=== PATIENT | male | born 1955 | race African-American/Black ===

== ENCOUNTER 2017-08-04 07:40 | Emergency (ER) | payer MEDICARE, MEDICAID ==
--- NOTE | 2017-08-04 08:33 | RAD ---
FRONTAL RADIOGRAPH CHEST: Date: 08-04-17 Comparison: None. History: Vomiting, nausea. FINDINGS: No pneumothorax, pleural fluid, focal consolidation or alveolar edema. Heart and mediastinal contour s demonstrate mild prominence of the cardiac silhouette which could be secondary to enlargement and/ or magnification. IMPRESSION: No acute findings. POS: [facility]
[2017-08-04] MEDS ORDERED: Ondansetron HCl/PF 4 MG/2 ML Vial ONE (08:46)
[2017-08-04 09:12] LABS: #Lymphocytes 1.4 thou/uL (1.20-3.40); #Monocytes 0.2 thou/uL (0.11-0.59); #Neutrophils 4.2 thou/uL (1.40-6.50); %Basophils 0.6 % (0.0-1.0); %Eosinophils 0.3 % (0.0-10.0); %Lymphocytes 23.2 % (21.0-51.0); %Monocytes 4.1 % (0.0-10.0); Mean Platelet Volume 8.8 fL (7.4-10.4); Red Blood Cell (RBC) Count 5.23 mill/uL (4.70-6.10); White Blood Cell (WBC) Count 5.8 thou/uL (4.8-10.8)
[2017-08-04] MEDS ORDERED: Promethazine HCl 25 MG/ML VIAL ONE (09:28)
[2017-08-04] MEDS ORDERED: Morphine 10 MG/ML VIAL ONE (09:29)
[2017-08-04 09:40] LABS: ALT (SGPT) 15 U/L (8-55); AST (SGOT) 23 U/L (5-34); Alkaline Phosphatase 89 U/L (40-150); Anion Gap 19 mmol/L (10-20); BUN (Urea Nitrogen) 11 mg/dL (8.4-25.7); Bilirubin, Total 0.7 mg/dL (0.2-1.2); CK (CPK) 360 U/L (30-200); Calc. Creatinine Clearance 0 mL/min (70-130); Calcium 10.6 mg/dL (7.8-10.44); Carbon Dioxide 25 mmol/L (23-31); Chloride 97 mmol/L (98-107); Estimated GFR-MDRD 69; Globulin 4.2 g/dL (2.4-3.5); Lipase 38 U/L (8-78)
[2017-08-04 09:44] LABS: Troponin I 0.015 ng/mL (< 0.028)
--- NOTE | 2017-08-04 10:11 | RAD ---
KUB: History: Abdominal pain, nausea, vomiting. FINDINGS: The bowel gas pattern appears nonobstructive. Surgical clips are seen in the right upper quadrant. T here are arthritic changes of the spine. IMPRESSION: No acute findings. POS: [facility]
== END 2017-08-04 12:43 | disposition home or self-care (01) ==
LOC: ERS 07:40
DX: R11.2 Nausea with vomiting, unspecified (principal); I11.0 Hypertensive heart disease with heart failure; I50.9 Heart failure, unspecified; E11.9 Type 2 diabetes mellitus without complications; E78.5 Hyperlipidemia, unspecified; Z79.891 Long term (current) use of opiate analgesic; Z79.899 Other long term (current) drug therapy
CPT/HCPCS: 71010; 74000; 80053; 82553; 83690; 83880; 84484; 85025; 93005; 96361; 96374; 96375; J2270; J2405; J2550

== ENCOUNTER 2017-09-09 11:37 | Observation (INO) | payer MEDICARE, MEDICAID ==
[2017-09-09] MEDS ORDERED: Ondansetron ODT 4 MG TAB ONE (12:37)
[2017-09-09 12:39] LABS: #Lymphocytes 1.3 thou/uL (1.20-3.40); #Monocytes 0.5 thou/uL (0.11-0.59); #Neutrophils 4.3 thou/uL (1.40-6.50); %Basophils 0.5 % (0.0-1.0); %Eosinophils 0.2 % (0.0-10.0); %Lymphocytes 21.7 % (21.0-51.0); %Monocytes 7.4 % (0.0-10.0); Hematocrit 45.5 % (42.0-52.0); Mean Platelet Volume 8.7 fL (7.4-10.4); Red Blood Cell (RBC) Count 4.91 mill/uL (4.70-6.10); White Blood Cell (WBC) Count 6.2 thou/uL (4.8-10.8)
[2017-09-09 13:03] LABS: ALT (SGPT) 17 U/L (8-55); AST (SGOT) 17 U/L (5-34); Alkaline Phosphatase 65 U/L (40-150); Anion Gap 15 mmol/L (10-20); BUN (Urea Nitrogen) 33 mg/dL (8.4-25.7); Bilirubin, Total 0.9 mg/dL (0.2-1.2); CK (CPK) 188 U/L (30-200); Calc. Creatinine Clearance 0 mL/min (70-130); Calcium 9.8 mg/dL (7.8-10.44); Carbon Dioxide 25 mmol/L (23-31); Chloride 102 mmol/L (98-107); Estimated GFR-MDRD 68; Globulin 3.3 g/dL (2.4-3.5); Lipase 34 U/L (8-78); Protein, Total 7.7 g/dL (5.8-8.1)
[2017-09-09 13:06] LABS: Troponin I 0.061 ng/mL (< 0.028)
--- NOTE | 2017-09-09 13:18 | RAD ---
CHEST ONE VIEW: History: Chest pain. Comparison: 08-04-17 FINDINGS: Lungs are clear. No pneumothorax or effusion. Cardiac silhouette and mediastinal contours are within normal limits. IMPRESSION: No acute intrathoracic abnormality. POS: [facility]
[2017-09-09] MEDS ORDERED: Mag-Al 1200 mg/1200 mg/30 ML UDCUP ONE (13:28)
[2017-09-09] MEDS ORDERED: Lidocaine Viscous Sol 2% 15 ml UD Cup ONE (13:30)
[2017-09-09] MEDS ORDERED: Nitroglycerin 0.4 MG TAB (25 Tab Bottle) ONE (14:35)
[2017-09-09 15:30] LABS: Troponin I 0.066 ng/mL (< 0.028)
[2017-09-09 18:15] LABS: Amphetamine Not Detected (NotDetected); Methadone Not Detected (NotDetected); Methamphetamine Not Detected (NotDetected)
[2017-09-09] MEDS ORDERED: cloNIDine 0.1 MG TAB PO PRN (18:32)
[2017-09-09] MEDS ORDERED: Labetalol HCl 100 MG/20 ML VIAL SLOW IVP PRN (18:32)
[2017-09-09] MEDS ORDERED: Acetaminophen 325 MG TAB PO PRN (18:32)
[2017-09-09] MEDS ORDERED: Ondansetron HCl/PF 4 MG/2 ML Vial IVP PRN (18:32)
[2017-09-09] MEDS ORDERED: hydrALAZINE 20 MG/ML VIAL SLOW IVP PRN (18:32)
[2017-09-09] MEDS ORDERED: Ondansetron ODT 4 MG TAB PO PRN (18:32)
[2017-09-09 18:37] VITALS: BMI 32.4
[2017-09-09] MEDS ORDERED: Morphine 4 MG/ML VIAL SLOW IVP PRN ×2 (18:45→23:01)
[2017-09-09] MEDS: Nitroglycerin 2% Ointment 1 INCH/1 GM Packet TOP SCH (19:48)
[2017-09-09] MEDS ORDERED: Nitroglycerin 0.4 MG TAB (25 Tab Bottle) PO PRN (22:55)
[2017-09-09] MEDS ORDERED: Cyclobenzaprine 10 MG TAB PO PRN (22:59)
[2017-09-09] MEDS ORDERED: traMADol HCl 50 MG TAB PO PRN (22:59)
[2017-09-09] MEDS ORDERED: Pantoprazole 40 MG VIAL IVP SCH (23:00)
[2017-09-09] MEDS ORDERED: Promethazine HCl 25 MG in Sodium Chloride 0.9% 50 ML IVPB PRN (23:00)
[2017-09-09] MEDS ORDERED: Carvedilol 6.25 MG TAB PO SCH (23:00)
[2017-09-09] MEDS ORDERED: Sodium Chloride 0.9% 1,000 ML IV SCH (23:00)
[2017-09-10 05:28] LABS: #Lymphocytes 1.6 thou/uL (1.20-3.40); #Monocytes 0.6 thou/uL (0.11-0.59); #Neutrophils 3.7 thou/uL (1.40-6.50); %Basophils 0.1 % (0.0-1.0); %Eosinophils 0.2 % (0.0-10.0); %Lymphocytes 26.4 % (21.0-51.0); %Monocytes 10.3 % (0.0-10.0); Hematocrit 41.1 % (42.0-52.0); Mean Platelet Volume 8.7 fL (7.4-10.4); Red Blood Cell (RBC) Count 4.38 mill/uL (4.70-6.10); White Blood Cell (WBC) Count 5.9 thou/uL (4.8-10.8)
[2017-09-10] MEDS: Nitroglycerin 2% Ointment 1 INCH/1 GM Packet TOP SCH (05:46)
[2017-09-10 05:53] LABS: Anion Gap 12 mmol/L (10-20); BUN (Urea Nitrogen) 35 mg/dL (8.4-25.7); Calc. Creatinine Clearance 78 mL/min (70-130); Carbon Dioxide 27 mmol/L (23-31); Chloride 103 mmol/L (98-107); Estimated GFR-MDRD 73; Magnesium 2.3 mg/dL (1.6-2.6); Phosphorus 3.9 mg/dL (2.3-4.7)
[2017-09-10] MEDS ORDERED: Carvedilol 25 MG TAB PO SCH (08:00)
--- NOTE | 2017-09-10 08:48 | HP ---
PRIMARY CARE PHYSICIAN: Dr. Ansley Vaughan. CHIEF COMPLAINT: Chest discomfort with nausea and vomiting of 4 days' duration. The patient was seen and examined on 09/09/2017. HISTORY OF PRESENT ILLNESS: Patient is a 62-year-old male with chronic systolic and diastolic heart failure, ejection fraction 30%-35%; hypertension; hyperlipidemia; diabetes mellitus, type 2; and belgica nary artery disease, who presented to the emergency room with above complaints. [facility] with nausea, vomiting, and was discharged home. Over the last 2 days, the patient has chest discomfort that is more or less dull with intermittent pr essure-like, left-sided, moderate intensity chest pain without any radiation. He also had nausea and vomiting along with epigastric discomfort. The nausea and vomiting has been ongoing for the last 4 days. He denies any palpitations or lightheadedness; however, had intermittent diaphoresis. He yoshi es recent immobilization, travel, fever, or chills. He is compliant with his PPIs and follows to GI clinic regularly. He underwent EGD 3 years ago that showed peptic ulcer per patient report. In the emergency room, his initial vital signs showed temperature 98.4, respirations 26, pulse rate o f 60, blood pressure 179/74 with O2 saturation 100% on room air. Patient is allergic to ASPIRIN. Hi s EKG showed sinus bradycardia with occasional PVCs with left anterior fascicular block with nonspeci fic ST-T wave changes. Chest x-ray was negative. Urine drug screen was positive for cannabinoid. H e received GI cocktail, Zofran with Protonix, and sublingual nitroglycerin in the ER. PAST MEDICAL HISTORY: 1. Chronic systolic and diastolic heart failure, ejection fraction 30%-35%, followed by Dr. Sloan. 2. Diabetes mellitus, type 2. 3. Hypertension. 4. Hyperlipidemia. 5. Coronary artery disease. 6. Gout. PAST SURGICAL HISTORY: 1. The patient had a cardiac catheterization as outpatient with Dr. Sloan in 2016, report unavailab le. 2. Cholecystectomy. ALLERGIES: Patient is allergic to ASPIRIN. CURRENT HOME MEDICATIONS: [facility], allopurinol 100 mg daily, Lipitor 40 mg daily, Coreg 12.5 mg b.i.d., Flexeril as needed, Dexilant 60 mg daily, lisinopril 40 mg daily, Flomax 0.4 mg daily, trama dol as needed. SOCIAL HISTORY: Patient currently lives at home. No tobacco, alcohol, or drug use reported. FAMILY HISTORY: Positive for colon and throat cancer. REVIEW OF SYSTEMS: The following complete review of systems was negative, unless otherwise mentioned in the HPI or below: Constitutional: Weight loss or gain, ability to conduct usual activities. Sk in: Rash, itching. Eyes: Double vision, pain. ENT/Mouth: Nose bleeding, neck stiffness, pain, te nderness. Cardiovascular: Palpitations, dyspnea on exertion, orthopnea. Respiratory: Shortness of breath, wheezing, cough, hemoptysis, fever, or night sweats. Gastrointestinal: Poor appetite, abdo cade pain, heartburn, nausea, vomiting, constipation, or diarrhea. Genitourinary: Urgency, frequen cy, dysuria, nocturia. Musculoskeletal: Pain, swelling. Neurologic/Psychiatric: Anxiety, depressi on. Allergy/Immunologic: Skin rash, bleeding tendency. PHYSICAL EXAMINATION: VITAL SIGNS: In the emergency room showed temperature 98.4, respirations 26, pulse of 60, blood pres sure 179/74 with O2 saturation 100% on room air. GENERAL: A 62-year-old male, feels somewhat better after the ER treatment. HEENT: Head atraumatic, normocephalic. Sclerae are anicteric. Moist mucous membranes. No oral les ion. NECK: Supple, no JVD appreciated. No carotid bruit. LUNGS: Clear to auscultation bilaterally. HEART: S1, S2 present. Regular rate and rhythm, 2/6 systolic murmur over the mitral area. No heave s or pulsation. ABDOMEN: Soft, mild epigastric tenderness, without any rebound, guarding, no costovertebral angle te nderness. EXTREMITIES: No edema or calf tenderness. NEUROLOGIC: Grossly nonfocal. Moves all four extremities. PSYCHIATRY: Alert, awake, oriented x3. SKIN: Warm and dry. LYMPH NODES: No palpable lymph nodes in the neck. PERIPHERAL VASCULAR: Radial pulses palpable bilaterally. MUSCULOSKELETAL: No joint swelling or tenderness. LABORATORY FINDINGS: CBC showed WBC 6.2 with hemoglobin 15.3, platelets 203 Chemistries showed sodiu m 138, potassium 3.8, chloride 102, bicarbonate 25, BUN 33, creatinine 1.29. Troponin was 0.061. BN P 440. Urine drug screen was positive for cannabinoid. Chest x-ray and EKG, by my review, as discus sed above. IMPRESSION: 1. Chest discomfort, rule out acute coronary syndrome. Patient has indeterminate troponins. 2. Nausea and vomiting with epigastric discomfort. Possibilities include gastritis versus hyperemes is due to Cannabis abuse. 3. Cannabis abuse. 4. Chronic kidney disease, stage 2. 5. Elevated troponins. 6. Chronic systolic and diastolic heart failure, appears to be compensated. 7. Hypertension. 8. Gout. 9. Diabetes mellitus, type 2, diet controlled. 10. Hyperlipidemia, on statins. 11. Coronary artery disease with last cardiac catheterization in 2016, report unavailable. 12. Aspirin allergy. 13. Obesity with a BMI 32.4. PLAN: The patient will be monitored on the telemetry unit. Cardiology will be consulted. He will p robably need a GI workup as outpatient. We will continue proton pump inhibitors at discharge. We wi ll start him on IV Protonix while he is here. Pain control, nitro patch for now due to chest discomf ort along with elevated blood pressure. Plan of care was discussed with the patient in detail. He stated understanding. Please note that patient was seen on 09/09/2017 at 23:00.
[2017-09-10] MEDS ORDERED: Pantoprazole 40 MG VIAL IVP SCH (09:00)
[2017-09-10] MEDS ORDERED: Atorvastatin Calcium 40 MG TAB PO SCH (09:00)
[2017-09-10] MEDS ORDERED: Tamsulosin HCl 0.4 MG CAP PO SCH (09:00)
[2017-09-10] MEDS ORDERED: Allopurinol 100 MG TAB PO SCH (09:00)
[2017-09-10] MEDS ORDERED: Lisinopril 20 MG TAB PO SCH (09:00)
--- NOTE | 2017-09-10 10:48 | CON ---
CARDIOLOGY CONSULTATION NOTE DATE OF CONSULTATION: 09/10/2017 REASON FOR CONSULTATION: Chest pain. HISTORY OF PRESENT ILLNESS: Mr. Ureña is a very pleasant 62-year-old - [place] gentleman who comes to the hospital for nausea and vomiting. He has been having a lot of nausea and vomiting for the last 4 days. He has been unable to eat much. He has been followed by Gastroenterology for this as this has been an ongoing issue and he was told he has severe peptic ulcer disease. He states that every now and then he gets 2 or 3 days worth of vomiting; this time it was 4 days, so he decided to come in for evaluation. He has a history of a cardiomyopathy back in 2011. He had an EF of 30% to 35%. Most recent echocardiogram was done a year and a half ago in 04/2016, and he had an EF of 45 % to 50%; around that same time, he had a heart catheterization that showed no significant coronary artery disease and his EF on LV gram was 50%. He has remained in all of his cardiac medications. He tells me he feels much better. He denies any more pain, tightness or pressure. It was mostly when he would hurle and only vomit. PAST MEDICAL HISTORY: 1. Nonischemic cardiomyopathy, latest EF at 50%. 2. Mild to moderate coronary artery disease. 3. Type 2 diabetes. 4. Hypertension. 5. Hyperlipidemia. 6. Gout. PAST SURGICAL HISTORY: 1. Cardiac catheterization. 2. Cholecystectomy. ALLERGIES: ASPIRIN does not really cause an allergy, but it is more a side effect from upset stomach. OUTPATIENT MEDICATIONS: Include; 1. Allopurinol 100 mg a day. 2. Lipitor 40 mg a day. 3. Coreg 12.5 mg b.i.d. 4. Flexeril p.r.n. 5. Dexilant 60 mg a day. 6. Lisinopril 40 mg a day. 7. Flomax. 8. Tramadol as needed. SOCIAL HISTORY: Lives at home. No alcohol, tobacco or drugs. FAMILY HISTORY: Noncontributory. REVIEW OF SYSTEMS: A 12-point review of systems was done and is all negative unless stated in the history of present illness. PHYSICAL EXAMINATION: VITAL SIGNS: Temperature 98.3, pulse 48-51, respiratory rate 16, satting 96% on room air and blood pressure 130/62. GENERAL: Awake, alert and oriented x3, in no distress. HEENT: Normocephalic and atraumatic. NECK: Supple. LUNGS: Clear. CARDIOVASCULAR: S1, S2. No S3, S4. No murmurs or rubs. ABDOMEN: Soft. Positive bowel sounds. EXTREMITIES: No edema. SKIN: Warm and dry. LABORATORY DATA: Laboratory work was reviewed. White count of 5.9, hemoglobin 13.7, hematocrit 41 and platelet count of 176. Chemistries are unremarkable. Troponins 0.06, 0.06 and 0.06. BNP was 440, creatinine of 1.2 and GFR 73. UDS is negative except for cannabinoids. IMAGING DATA: EKG is reviewed, no ischemic changes. Telemetry was reviewed. ASSESSMENT AND PLAN: 1. Chest pain: Likely related to gastrointestinal source. Heart catheterization a little bit over a year ago showed just a 50% lesion in the groove circumflex that is not flow limiting. His ejection fraction was normal at 50% at that time. 2. Nonischemic cardiomyopathy: Normalized ejection fraction. 3. Palpitations: He gives a history of feeling episodes of palpitations recently. He has not had any arrhythmias on telemetry here; we will have him get a 30-day monitor, as he says these happen about once every 2-3 weeks. 4. From the cardiac perspective, he should be able to be discharged home and will follow up with me in the office in 1 month with an echocardiogram and event monitor. OLY
[2017-09-10 12:59] VITALS: BP 164/78; TEMP 97.5
--- NOTE | 2017-09-11 08:29 | DIS ---
DATE OF ADMISSION: 09/09/2017 DATE OF DISCHARGE: 09/10/2017 DISCHARGE DISPOSITION: Home. FOLLOWUP: Follow up with primary care physician, Ansley Vaughan PA-C, in 1 week. Follow up wit h Cardiology, Dr. Sloan as scheduled. Follow up with secretarial teacher as soon as possible. The patient was seen and examined on the day of discharge. Denies any new complaints. Chest discomf ort/epigastric discomfort has resolved. BRIEF HOSPITAL COURSE: The patient is a 62-year-old male with chronic systolic and diastolic heart f ailure, hypertension, diabetes mellitus type 2, and GERD, who presented to the emergency room with ch est discomfort along with nausea and vomiting of 4 days duration. Please refer to the history and ph ysical for further details. The patient was admitted to the telemetry unit as a 23-hour observation with chest pain, rule out celso cardial infarction. His troponins were in the indeterminate range with maximum troponin 0.066. BNP was 440. Urine drug screen was positive for cannabinoid. He was evaluated by Cardiology, Dr. Sloan . The patient had a cardiac catheterization last year that showed around 50% lesion in the circumfle x, which was not flow limiting. The ejection fraction was normal at that time around 50%. The patie nt's symptoms probably GI in origin. He was advised to follow up with gastroenterology clinic. He n ormally follows Dr. Ayo Dickerson. He will follow up with Cardiology after a month for a repeat echocar diogram as well as an event monitor due to intermittent fluttering. FINAL DIAGNOSES: 1. Chest discomfort, acute coronary syndrome ruled out. 2. Nausea, vomiting, epigastric discomfort, probably secondary to gastritis versus peptic ulcer dise ase. Hyperemesis due to cannabis is also a possibility. 3. Intermittent fluttering. Event monitor will be arranged. 4. Chronic kidney disease stage 2. 5. Slightly elevated troponins, probably secondary to demand ischemia/dehydration. 6. Chronic systolic and diastolic heart failure, compensated. Last ejection fraction was in 50% ran ge per Cardiology report. 7. Hypertension. 8. Gout. 9. Diabetes mellitus type 2. 10. Hyperlipidemia. 11. Coronary artery disease. 12. ASPIRIN allergy. 13. Obesity with a BMI of 32.4. Plan of care was discussed with the patient in detail. He stated understanding.
== END 2017-09-10 13:20 | disposition home or self-care (01) ==
LOC: ERS 11:37 → 2SW 16:31
PROVIDERS: ADMIT Internal Medicine; ATTEND Internal Medicine
DX: R07.89 Other chest pain (principal); I49.8 Other specified cardiac arrhythmias; I13.0 Hypertensive heart and chronic kidney disease with heart failure and stage 1 through stage 4 chronic kidney disease, or unspecified chronic kidney disease; E11.22 Type 2 diabetes mellitus with diabetic chronic kidney disease; N18.2 Chronic kidney disease, stage 2 (mild); I50.42 Chronic combined systolic (congestive) and diastolic (congestive) heart failure; M10.9 Gout, unspecified; R11.2 Nausea with vomiting, unspecified; E78.5 Hyperlipidemia, unspecified; I25.10 Atherosclerotic heart disease of native coronary artery without angina pectoris; F12.10 Cannabis abuse, uncomplicated; I25.2 Old myocardial infarction; E66.9 Obesity, unspecified; Z68.32 Body mass index [BMI] 32.0-32.9, adult; Z88.8 Allergy status to other drugs, medicaments and biological substances; Z98.61 Coronary angioplasty status; Z90.49 Acquired absence of other specified parts of digestive tract; Z79.899 Other long term (current) drug therapy; Z80.0 Family history of malignant neoplasm of digestive organs; Z80.8 Family history of malignant neoplasm of other organs or systems
CPT/HCPCS: 71010; 80048; 80053; 80306; 82550; 82553; 83690; 83735; 83880; 84100; 84484 ×2; 85025 ×2; 93005; 94760 ×3; 96361; 96374; 96375; 96376 ×2; 99285; G0378; 36415; A4216; C9113; J2270; Q0162

== ENCOUNTER 2017-10-29 07:47 | Observation (INO) | payer MEDICARE, MEDICAID ==
[2017-10-29] MEDS ORDERED: Ondansetron HCl/PF 4 MG/2 ML Vial ONE (08:30)
[2017-10-29] MEDS ORDERED: Pantoprazole 40 MG VIAL ONE (08:30)
[2017-10-29] MEDS ORDERED: Promethazine HCl 25 MG/ML VIAL ONE (08:52)
[2017-10-29] MEDS ORDERED: Carvedilol 6.25 MG TAB PO SCH (09:30)
[2017-10-29] MEDS ORDERED: hydrALAZINE 20 MG/ML VIAL SLOW IVP PRN (09:55)
[2017-10-29] MEDS ORDERED: Ondansetron ODT 4 MG TAB PO PRN (10:07)
[2017-10-29] MEDS ORDERED: Ondansetron HCl/PF 4 MG/2 ML Vial IVP PRN ×2 (10:07→10:14)
[2017-10-29] MEDS ORDERED: Sodium Chloride 0.9% 1,000 ML IV SCH (10:14)
[2017-10-29] MEDS ORDERED: HYDROcodone/Acetaminophen 7.5/325 mg Tablet PO PRN (10:14)
[2017-10-29 10:15] VITALS: BMI 31.1
--- NOTE | 2017-10-29 10:39 | HP ---
DATE OF ADMISSION: 10/29/2017 CHIEF COMPLAINT: Nausea and vomiting. HISTORY OF PRESENT ILLNESS: This is a 62-year-old -[place] male with a known history of pept ic ulcer disease diagnosed 3 years ago following an EGD. Patient is from [place]. He initially dev eloped acute onset of abdominal pain. This was 2 days ago which is where he woke up with the pain an d this has been constant since 2 days and today he had a similar pain last night and he came to the E for further evaluation. The patient was having severe vomiting associated with nausea and was unab le to keep anything down. His pain is noted in the left upper quadrant, was 7 on 10 in intensity and no evidence of any blood in the stool and no blood in the vomit. He denied eating any outside food or any evidence of food poisoning. He does drink alcohol. He says he takes beer occasionally, but n o history of smoking. The patient has no history of congestive heart failure, had a stress test 3 ye ars ago and was diagnosed with CHF and is on medication since then. He has a known history of hypert ension which is poorly controlled, most likely from the pain. PAST MEDICAL HISTORY: 1. Hypertension. 2. Hyperlipidemia. 3. History of congestive heart failure. 4. History of peptic ulcer disease. PAST SURGICAL HISTORY: Cholecystectomy. SOCIAL HISTORY: The patient is a nonsmoker. He does drink alcohol occasionally. No history of illi cit drug use. He lives with his family. FAMILY HISTORY: Patient has significant family history of coronary artery disease. His father at age of 60s and also has coronary artery disease in her mother and brothers. REVIEW OF SYSTEMS: All 12 systems are reviewed with the patient thoroughly and found to be negative at this time except the ones described in HPI. The following complete review of systems was negative, unless otherwise mentioned in the HPI or below : Constitutional: Weight loss or gain, sense of well-being, ability to conduct usual activities, ex ercise tolerance. Skin/Breast: Rash, itching, changes in hair growth or loss, nail changes, breast lumps, tenderness, swelling, nipple discharge. Eyes: Vision, double vision, tearing, blind spots, p ain. ENT/Mouth: Headaches (location, time of onset, duration, precipitating factors), vertigo, ligh theadedness, injury. Vision, double vision, tearing, blind spots, pain, nose bleeding, colds, obstruc tion, discharge, dental difficulties, gingival bleeding, dentures, neck stiffness, pain, tenderness, masses in thyroid or other areas. Cardiovascular: Precordial pain, substernal distress, palpitation s, syncope, dyspnea on exertion, orthopnea, nocturnal paroxysmal dyspnea, edema, cyanosis, hypertensi on, heart murmurs, varicosities, phlebitis, claudication. Respiratory: Pain, shortness of breath, w heezing, stridor, cough, hemoptysis, fever or night sweats. Gastrointestinal: Poor appetite, dyspha nan, indigestion, abdominal pain, heartburn, eructation, nausea, vomiting, hematemesis, jaundice, con stipation, or diarrhea, abnormal stools (matthew-colored, tarry, bloody, greasy, foul smelling), flatule nce, hemorrhoids, recent changes in bowel habits. Genitourinary: Urgency, frequency, dysuria, noctu shonda, hematuria, polyuria, oliguria, unusual (or change in) color of urine, stones, hesitancy, change in size of stream, dribbling, acute retention or incontinence, libido, potency. Musculoskeletal: Pa in, swelling, redness or heat of muscles or joints, limitation, of motion, muscular weakness, atrophy , cramps. Neurologic/Psychiatric: Convulsions, paralyses, tremor, incoordination, paresthesias, dif ficulties with memory of speech, sensory or motor disturbances, or muscular coordination (ataxia, alec mor), emotional problems, anxiety, depression, previous psychiatric care, unusual perceptions, halluc inations. Allergy/Immunologic: Skin rash, anemia, bleeding tendency, polydipsia, polyuria, intolera nce to heat or cold. HOME MEDICATIONS: 1. Allopurinol 100 mg p.o. daily. 2. Atorvastatin 40 mg p.o. daily. 3. Cyclobenzaprine 10 mg p.o. t.i.d. 4. Dexlansoprazole 60 mg p.o. daily. 5. Lisinopril 40 mg p.o. daily. 6. Tamsulosin 0.4 mg p.o. daily. 7. Tramadol 50 mg p.o. q.i.d. 8. Carvedilol 12.5 mg p.o. daily. ALLERGIES: ASPIRIN. PHYSICAL EXAMINATION: VITAL SIGNS: Blood pressures are 185/85, respiratory rate is 18, saturation is 98%. GENERAL: The patient is moderately built and moderately nourished. He appears to be in mild distres s with abdominal pain, otherwise is alert and oriented. HEENT: Atraumatic, normocephalic, PERRLA. Extraocular movements were intact. Oral mucosa is pink a nd moist. CARDIOVASCULAR: S1, S2 normal. No murmurs, rubs or gallops. LUNGS: Bilateral air entry was equal. No wheezing, no crackles. ABDOMEN: Tender in the left upper quadrant and right upper quadrant. No guarding was noted. Bowel sounds were normal. MUSCULOSKELETAL: No calf tenderness. No pedal edema. EXTREMITIES: No joint redness, no joint swelling. SKIN: No cyanosis, no edema, no rash, no pallor. NEUROLOGIC: Cranial nerve examination II-XII intact. No focal deficits were noted. LABORATORY DATA: Hemoglobin is 14. BUN is 14, creatinine is 0.97. All rest of the labs are not hillary ilable at this time. ASSESSMENT: 1. Acute intractable nausea and vomiting. 2. History of peptic ulcer disease. 3. Uncontrolled hypertension. 4. History of congestive heart failure. 5. History of hyperlipidemia. 6. History of gout. 7. Sinus. PLAN: 1. Plan is to admit this patient and closely monitor this patient. Patient has a persisting abdomin al pain. No imaging is available at this time. We will do CT of the abdomen with oral contrast. 2. We will start the patient on Protonix IV 40 mg b.i.d. and will closely monitor. We will keep the patient n.p.o. until seen by GI, Dr. East has been consulted. 3. The patient has history of uncontrolled hypertension. We will discontinue the IV fluids at this time as the patient has poorly controlled blood pressures and has a history of congestive heart failu re. We will start the patient on lisinopril. He is on medication and will do hydralazine 10 mg q.6 h. for blood pressures more than 160. 4. The patient has history of congestive heart failure. We will avoid volume overload. The patient has received fluid boluses in the ER. I will just run the fluids to keep the vein open. 5. History of hyperlipidemia. We will continue the patient with home medication. 6. History of gout. No evidence of any gout exacerbation noted. We will hold allopurinol at this t vicki. 7. DVT prophylaxis. SCDs. I spent 70 minutes on this patient.
[2017-10-29 10:56] LABS: #Lymphocytes 1.2 thou/uL (1.20-3.40); #Monocytes 0.3 thou/uL (0.11-0.59); #Neutrophils 6.1 thou/uL (1.40-6.50); %Basophils 0.2 % (0.0-1.0); %Lymphocytes 15.6 % (21.0-51.0); %Monocytes 4.1 % (0.0-10.0); %Neutrophils 80.1 % (42.0-75.0); Mean Corpuscular HGB CONC 33.2 g/dL (32.0-36.0); Mean Corpuscular Hemoglobin 31.1 pg (27.0-31.0); Mean Corpuscular Volume 93.5 fl (80.0-94.0); Mean Platelet Volume 8.3 fL (7.4-10.4); Platelet Count 225 thou/uL (130-400); RBC Distribution Width 12.8 % (11.5-14.5); Red Blood Cell (RBC) Count 5.16 mill/uL (4.70-6.10); White Blood Cell (WBC) Count 7.6 thou/uL (4.8-10.8)
[2017-10-29 11:10] LABS: Albumin 4.5 g/dL (3.4-4.8)
[2017-10-29 11:12] LABS: Calcium 9.9 mg/dL (7.8-10.44); Chloride 100 mmol/L (98-107); Potassium 3.7 mmol/L (3.5-5.1); Sodium 138 mmol/L (136-145)
[2017-10-29 11:13] LABS: Globulin 3.6 g/dL (2.4-3.5); Glucose 137 mg/dL (80-115); Protein, Total 8.1 g/dL (5.8-8.1)
[2017-10-29 11:14] LABS: Carbon Dioxide 23 mmol/L (23-31)
[2017-10-29 11:15] LABS: Bilirubin, Total 0.8 mg/dL (0.2-1.2)
[2017-10-29 11:16] LABS: Alkaline Phosphatase 93 U/L (40-150); Calc. Creatinine Clearance 79 mL/min (70-130); Estimated GFR-MDRD 79
[2017-10-29 11:17] LABS: BUN (Urea Nitrogen) 10 mg/dL (8.4-25.7)
[2017-10-29 11:18] LABS: AST (SGOT) 17 U/L (5-34)
[2017-10-29 11:19] LABS: ALT (SGPT) 15 U/L (8-55)
[2017-10-29 11:28] LABS: Anion Gap 19 mmol/L (10-20)
--- NOTE | 2017-10-29 14:05 | CON ---
DATE OF CONSULTATION: 10/29/2017 REQUESTING PHYSICIAN: Dr. Noland REASON FOR CONSULTATION: Nausea and vomiting. HISTORY OF PRESENT ILLNESS: Colt Ureña is a 62-year-old gentleman, a patient in [facility] GI colleague, Dr. Ayo Dickerson. He had a history of obesity, hypertension and congestive heart failu re as well as gout. He was treated for H. pylori gastritis seen on EGD in 2010. More recent EGD in 2016 showed only mild gastritis and a small hiatal hernia and a colonoscopy at that time showed only sigmoid diverticulosis and an internal hemorrhoid. The patient relates that through the years, he rosenberg s had episodes of recurrent nausea and vomiting. These episodes will last up to several days, can be quite severe without really any symptoms in between episodes. This current episode started 2 days a go. He started to have significant epigastric pain associated with nausea. He says he has had proba kym 30 episodes of emesis in the past couple of days. This has been nonbloody. No change in bowel h abits, no blood in the stool. No fever. He presented to the emergency department in [place] and wa s transferred here. He had a noncontrast CT of the abdomen and pelvis overnight which showed only pr ominent prostate, but was otherwise normal. He just finished a contrast CT here and the report is pe nding. Labs including LFTs and lipase and troponin are all negative, though BNP is elevated at 732. He reports that NSAID use is quite infrequent. He does use Dexilant 60 mg just on an as needed basi s. He does endorse occasionally smoking marijuana for recreational uses but says this is pretty infr equent. REVIEW OF SYSTEMS: Full review of systems including constitutional, head, eyes, ears, nose, throat, GI, , cardiovascular, respiratory, musculoskeletal, and neurologic systems is negative except as no niki in the HPI. PAST MEDICAL HISTORY: Hypertension, hyperlipidemia, congestive heart failure, H. pylori gastritis tr eated in 2010, small hiatal hernia seen on last EGD 2015. Colonic diverticulosis on last colonoscopy 2015. Gout, cholecystectomy. ALLERGIES: ASPIRIN. OUTPATIENT MEDICATIONS: Allopurinol, atorvastatin, Flexeril, lisinopril, Coreg, Flomax, tramadol, De xilant 60 mg taken p.r.n. SOCIAL HISTORY: No smoking. Alcohol use is occasional, marijuana use is also occasional. FAMILY HISTORY: Positive for coronary artery disease. PHYSICAL EXAMINATION: VITAL SIGNS: Temperature 97.9, pulse 69, blood pressure 172/84, 100% oxygen saturation on room air. GENERAL: A 62-year-old man lying in bed comfortably in no distress. SKIN: No jaundice, no rashes were palpable. EYES: No scleral icterus. Extraocular movements intact. ENT: Mucous membranes moist, no oral lesions. LYMPH: No submandibular, supraclavicular lymphadenopathy. THYROID: Nontender to palpation. HEART: Regular rate and rhythm. LUNGS: Clear to auscultation bilaterally. ABDOMEN: Bowel sounds present, soft, tender to palpation in the epigastrium. No guarding or rebound tenderness. EXTREMITIES: No peripheral edema. VESSELS: Radial pulses 2+ bilaterally. NEUROLOGICAL: Cranial nerves II-XII intact bilaterally. No focal deficits. LABORATORY STUDIES: WBC 7.6, hemoglobin 16.0, platelets 225. Sodium 138, potassium 3.7, BUN 10, cre atinine 1.14. Total bilirubin 0.8, alkaline phosphatase 93, AST 17, ALT 15, albumin 4.5. Troponin n egative. Lipase 8, BNP 732. IMAGING STUDIES: CT of the abdomen and pelvis from early this morning without contrast showed promin ence of the prostate, but was otherwise normal exam. A contrast CT was just performed and this repor t is pending. ASSESSMENT AND PLAN: 1. Nausea and vomiting. 2. Epigastric pain. He reports having had similar episodes in the past, lasting up to several days to a week. He does have a history of Helicobacter pylori gastritis, although this was not really severe on last EGD in 2016. Note; workup otherwise is negative so far including noncontrast CT imaging and lab stud ies. We will see what the contrast CT shows. We will go ahead and plan for EGD tomorrow morning for further investigation. If this is unrevealing, consider the possibility of cannabinoid hyperemesis syndrome, as he does tend to use marijuana and symptoms seemed to come in recurrent severe episodes w hich is characteristic of cannabinoid hyperemesis syndrome. Further recommendations following endoscopy tomorrow. Please call at any time with questions or conc erns.
[2017-10-29] MEDS: Carvedilol 6.25 MG TAB PO SCH (20:12)
[2017-10-29] MEDS: Pantoprazole 40 MG VIAL IVP SCH (20:13)
[2017-10-29] MEDS: Famotidine/PF 20 mg/2ml Vial SLOW IVP SCH (20:13)
[2017-10-30 04:20] LABS: #Basophils 0.1 thou/uL (0.0-0.2); #Lymphocytes 1.6 thou/uL (1.20-3.40); #Monocytes 0.8 thou/uL (0.11-0.59); #Neutrophils 6.5 thou/uL (1.40-6.50); %Basophils 0.7 % (0.0-1.0); %Eosinophils 0.1 % (0.0-10.0); %Lymphocytes 17.4 % (21.0-51.0); %Neutrophils 72.8 % (42.0-75.0); Hemoglobin 16.7 g/dL (14.0-18.0); Mean Corpuscular Hemoglobin 31.9 pg (27.0-31.0); Mean Corpuscular Volume 93.8 fl (80.0-94.0); Mean Platelet Volume 8.9 fL (7.4-10.4); Platelet Count 205 thou/uL (130-400); RBC Distribution Width 13.2 % (11.5-14.5); Red Blood Cell (RBC) Count 5.23 mill/uL (4.70-6.10); White Blood Cell (WBC) Count 8.9 thou/uL (4.8-10.8)
[2017-10-30 04:30] LABS: Anion Gap 16 mmol/L (10-20); BUN (Urea Nitrogen) 18 mg/dL (8.4-25.7); Calc. Creatinine Clearance 85 mL/min (70-130); Calcium 9.5 mg/dL (7.8-10.44); Carbon Dioxide 25 mmol/L (23-31); Chloride 101 mmol/L (98-107); Estimated GFR-MDRD 85; Glucose 124 mg/dL (80-115); Potassium 3.7 mmol/L (3.5-5.1); Sodium 138 mmol/L (136-145)
[2017-10-30 08:17] VITALS: TEMP 98.8
[2017-10-30] MEDS ORDERED: Lisinopril 20 MG TAB PO SCH (09:00)
[2017-10-30] MEDS ORDERED: Ondansetron HCl/PF 4 MG/2 ML Vial IVP PRN (09:58)
[2017-10-30] MEDS ORDERED: Morphine Sulfate 2 MG/ML SYRINGE SLOW IVP PRN (09:58)
[2017-10-30] MEDS ORDERED: Promethazine HCl 25 MG/ML VIAL SLOW IVP PRN (09:58)
[2017-10-30] MEDS: Pantoprazole 40 MG VIAL IVP SCH (11:08)
[2017-10-30] MEDS: Famotidine/PF 20 mg/2ml Vial SLOW IVP SCH (11:08)
[2017-10-30] MEDS: Carvedilol 6.25 MG TAB PO SCH (11:09)
[2017-10-30 11:11] VITALS: BP 133/60
--- NOTE | 2017-10-30 11:30 | OP ---
GI ENDOSCOPY NOTE DATE OF PROCEDURE: 10/30/2017 SURGEON: Jag East M.D. ETYMOLOGY TEACHER SURGEON: None. PROCEDURE: Esophagogastroduodenoscopy, diagnostic. INDICATIONS: 1. Nausea and vomiting. 2. Epigastric pain. MEDICATIONS: See anesthesia record. FINDINGS: After discussion of the risks, benefits and alternatives of the procedure, informed consen t was obtained and witnessed. Pre-endoscopic cardiopulmonary examination was satisfactory. Timeout was performed before sedation was achieved. Sedation was achieved with anesthesia assistance in the endoscopy unit. A Pentax adult upper endoscope was placed into the oropharynx and passed through the cricopharyngeus under direct visualization. The esophageal mucosa appeared normal throughout with a normal-appearing Z-line. The endoscope was passed forward into the stomach. Forward and retroflexe d views of the entire gastric mucosa were obtained. The gastric mucosa appeared normal throughout. The endoscope was advanced through the pylorus and into the first and second portions of the duodenum , which also appeared normal. The upper endoscope was then completely withdrawn and the patient allo wed to recover. The patient tolerated the procedure well. There were no immediate post-procedure co mplications. IMPRESSION: 1. Normal esophagogastroduodenoscopy. 2. Suspect possible cannabinoid hyperemesis syndrome. RECOMMENDATIONS: The patient has been feeling a bit better this morning. Advance diet as tolerated. Treat symptomatically. Going forward, he needs to discontinue all marijuana use. We will have him follow up in the GI outpatient clinic back with Dr. Dickerson or one of our physician assistance in the n ext 2-3 weeks. GI will sign off, but please call back with any questions or concerns. Dr. Maldonado is covering for GI this weekend.
--- NOTE | 2017-10-30 12:51 | PDOC.PN ---
- Subjective Encounter Start Date: 10/30/17 Encounter Start Time: 12:50 Mr. Ureña was seen today in follow-up. He does not have any complaints. The abdominal pain is improving. He has been able to keep liquids down. - Objective Resuscitation Status: Resuscitation Status FULL:Full Resuscitation MAR Reviewed: Yes Vital Signs & Weight: Vital Signs (12 hours) Temp Pulse Resp BP BP Pulse Ox 10/30/17 11:10 133/60 10/30/17 11:09 133/60 10/30/17 08:16 98.8 F 57 L 16 153/74 H 99 10/30/17 07:40 98.8 F 57 L 16 10/30/17 03:47 61 18 172/85 H Weight Admit Weight 186 lb 12.8 oz Weight 186 lb 12.8 oz I&O: 10/29/17 10/30/17 10/31/17 06:59 06:59 06:59 Output Total 300 Balance -300 Result Diagrams: 10/30/17 03:49 10/30/17 03:49 Additional Labs: Accuchecks 10/29/17 15:15 POC Glucose 118 H Phys Exam - Physical Examination HEENT: PERRLA Respiratory: no wheezing, no rales, no rhonchi, clear to auscultation bilateral Cardiovascular: RRR, no significant murmur Gastrointestinal: soft, non-tender, positive bowel sounds Musculoskeletal: no edema Dx/Plan (1) Hypertension Code(s): I10 - ESSENTIAL (PRIMARY) HYPERTENSION Status: Acute (2) Intractable nausea and vomiting Code(s): R11.2 - NAUSEA WITH VOMITING, UNSPECIFIED Status: Acute (3) Type II diabetes mellitus, well controlled Code(s): E11.9 - TYPE 2 DIABETES MELLITUS WITHOUT COMPLICATIONS Status: Chronic - Plan * Nausea and vomiting- resolved * HTN- blood pressure has improved * stable for discharge home..
[2017-10-30] MEDS ORDERED: Propofol 200 MG/20 ML VIAL ONE (14:22)
--- NOTE | 2017-10-30 19:26 | DIS ---
ADMISSION DATE: 10/29/2017 DISCHARGE DATE: 10/30/2017 PRIMARY CARE PHYSICIAN: Dr. Vaughan. DISCHARGE DISPOSITION: Home. PRIMARY DISCHARGE DIAGNOSES: 1. Nausea and vomiting, questionable etiology, possible due to cannabis hyperemesis syndrome. 2. Hypertension. 3. Dyslipidemia. 4. History of peptic ulcer disease. DISCHARGE MEDICATIONS: Include Zofran 4 mg q. 8 hours p.r.n. nausea and vomiting, tramadol 50 mg q.i .d. as needed, Flomax 0.4 mg daily, lisinopril 40 mg daily, Dexilant 60 mg daily, Flexeril 10 mg t.i. d. as needed, carvedilol 12.5 mg twice daily, Lipitor 40 mg daily, and allopurinol 100 mg daily. PROCEDURES DONE DURING ADMISSION: The patient had an upper endoscopy, which was normal and there was some possible suspected cannabis hyperemesis syndrome. The patient also had a CT scan of the abdome n in the emergency room showing no abdominal pelvic findings to explain the pain moderately enlarged prostate and a cyst in the left kidney. CODE STATUS: FULL CODE. ALLERGIES: ASPIRIN. HOSPITAL COURSE: Mr. Ureña is a pleasant 62-year-old gentleman that presented to the emergency room with complaints of nausea and vomiting, which he has had been going on for 2 days and also constant p ain in the epigastric region, which was 7/10 in intensity. He was evaluated in the ER and had a CT s can of the abdomen, which was essentially negative. He was placed in observation and evaluated by [facility]. He had an upper endoscopy. This was negative for any significant pathology. He steen s have a history of smoking marijuana. He says occasionally and it is suspected that some of his sym ptoms could be due to cannabis hyperemesis syndrome. This was explained to the patient and he needs to abstain from marijuana. He voiced understanding and as such, he will be discharged home to have c lose outpatient followup.
== END 2017-10-30 13:23 | disposition home or self-care (01) ==
LOC: ERS 07:47 → 2SW 08:58
PROVIDERS: ADMIT Family Medicine; ATTEND Family Medicine
PROC: 0DJ08ZZ Inspection of Upper Intestinal Tract, Via Natural or Artificial Opening Endoscopic (ICD-10-PCS; principal; 2017-10-29)
DX: R11.2 Nausea with vomiting, unspecified (principal); R10.13 Epigastric pain; I11.0 Hypertensive heart disease with heart failure; I50.9 Heart failure, unspecified; E78.5 Hyperlipidemia, unspecified; E11.9 Type 2 diabetes mellitus without complications; M10.9 Gout, unspecified; F12.90 Cannabis use, unspecified, uncomplicated; E66.9 Obesity, unspecified; Z68.31 Body mass index [BMI] 31.0-31.9, adult; Z90.49 Acquired absence of other specified parts of digestive tract; Z98.890 Other specified postprocedural states; Z87.19 Personal history of other diseases of the digestive system; Z87.11 Personal history of peptic ulcer disease; Z79.899 Other long term (current) drug therapy
CPT/HCPCS: 43235; 80048; 80053; 82962; 85025 ×2; 96365; 96375 ×2; 96376 ×2; 97139 ×2; 99285; G0378; 36415; 36416; C9113; J0360; J2405; J2550; J2704; S0028

== ENCOUNTER 2017-11-19 10:42 | Emergency (ER) | payer MEDICARE, MEDICAID ==
[2017-11-19 11:20] LABS: Hemoglobin 17.8 g/dL (14.0-18.0); Mean Corpuscular HGB CONC 33.5 g/dL (32.0-36.0); Mean Corpuscular Hemoglobin 30.3 pg (27.0-31.0); Mean Corpuscular Volume 90.4 fl (80.0-94.0); Mean Platelet Volume 8.7 fL (7.4-10.4); Platelet Count 204 thou/uL (130-400); RBC Distribution Width 12.7 % (11.5-14.5); Red Blood Cell (RBC) Count 5.89 mill/uL (4.70-6.10); White Blood Cell (WBC) Count 6.4 thou/uL (4.8-10.8)
[2017-11-19] MEDS ORDERED: Haloperidol Lactate 5 MG/ML VIAL ONE (11:31)
[2017-11-19] MEDS ORDERED: diphenhydrAMINE 50 MG/ML VIAL ONE (11:31)
[2017-11-19 11:34] LABS: Band 1 % (5-11); Eosinophils 1 % (0-10); Lymphocytes 14 % (21-51); MDiff Complete? YES; Monocytes 4 % (0-10); Neutrophil 78 % (42-75); RBC Morphology Normal; Reactive Lymphocytes 2 % (0-10)
[2017-11-19 11:38] LABS: ALT (SGPT) 11 U/L (8-55); AST (SGOT) 18 U/L (5-34); Alkaline Phosphatase 107 U/L (40-150); Anion Gap 23 mmol/L (10-20); BUN (Urea Nitrogen) 17 mg/dL (8.4-25.7); Bilirubin, Total 0.8 mg/dL (0.2-1.2); Calc. Creatinine Clearance 0 mL/min (70-130); Calcium 10.8 mg/dL (7.8-10.44); Carbon Dioxide 20 mmol/L (23-31); Chloride 100 mmol/L (98-107); Estimated GFR-MDRD 73; Globulin 4.1 g/dL (2.4-3.5); Glucose 139 mg/dL (80-115); Potassium 4.6 mmol/L (3.5-5.1); Protein, Total 9.1 g/dL (5.8-8.1); Sodium 138 mmol/L (136-145)
== END 2017-11-19 16:45 | disposition home or self-care (01) ==
LOC: ERS 10:42
DX: R11.2 Nausea with vomiting, unspecified (principal); I25.2 Old myocardial infarction; I11.0 Hypertensive heart disease with heart failure; I50.9 Heart failure, unspecified; E11.9 Type 2 diabetes mellitus without complications; E78.5 Hyperlipidemia, unspecified; Z79.899 Other long term (current) drug therapy
CPT/HCPCS: 36415; 80053; 83690; 85025; 93005; 96361; 96374; 96375; J1200; J1630

== ENCOUNTER 2018-04-24 21:31 | Emergency (ER) | payer MEDICARE, MEDICAID ==
[2018-04-24] MEDS ORDERED: Ondansetron ODT 4 MG TAB ONE (22:09)
[2018-04-24] MEDS ORDERED: Ondansetron PF 4 MG/2 ML Vial ONE (22:31)
[2018-04-24 22:56] LABS: #Eosinphils 0.2 thou/uL (0.0-0.7); #Lymphocytes 1.3 thou/uL (1.20-3.40); #Monocytes 0.4 thou/uL (0.11-0.59); #Neutrophils 5.5 thou/uL (1.40-6.50); %Basophils 0.1 % (0.0-1.0); %Eosinophils 2.4 % (0.0-10.0); %Lymphocytes 17.7 % (21.0-51.0); %Monocytes 5.6 % (0.0-10.0); %Neutrophils 74.1 % (42.0-75.0); Hemoglobin 14.4 g/dL (14.0-18.0); Mean Corpuscular HGB CONC 34.1 g/dL (32.0-36.0); Mean Corpuscular Hemoglobin 32.4 pg (27.0-31.0); Mean Platelet Volume 8.8 fL (7.4-10.4); Platelet Count 180 thou/uL (130-400); RBC Distribution Width 13.1 % (11.5-14.5); Red Blood Cell (RBC) Count 4.46 mill/uL (4.70-6.10); White Blood Cell (WBC) Count 7.4 thou/uL (4.8-10.8)
[2018-04-24 23:13] LABS: ALT (SGPT) 16 U/L (8-55); AST (SGOT) 14 U/L (5-34); Albumin 3.9 g/dL (3.4-4.8); Alkaline Phosphatase 67 U/L (40-150); Anion Gap 16 mmol/L (10-20); BUN (Urea Nitrogen) 15 mg/dL (8.4-25.7); Bilirubin, Total 0.7 mg/dL (0.2-1.2); Calc. Creatinine Clearance 0 mL/min (70-130); Calcium 9.2 mg/dL (7.8-10.44); Carbon Dioxide 23 mmol/L (23-31); Chloride 105 mmol/L (98-107); Estimated GFR-MDRD 77; Globulin 2.7 g/dL (2.4-3.5); Glucose 94 mg/dL (80-115); Lipase 20 U/L (8-78); Potassium 3.9 mmol/L (3.5-5.1); Protein, Total 6.6 g/dL (5.8-8.1); Sodium 140 mmol/L (136-145)
--- NOTE | 2018-04-24 23:14 | RAD ---
FRONTAL VIEW CHEST: 04/24/18 INDICATION: Nausea and vomiting. FINDINGS: The lungs are clear. No free air beneath the hemidiaphragms. The cardiac silhouette is accentuated by portable technique. Chest otherwise similar to prior exam, 10/29/17. IMPRESSION: No focal consolidation. POS: [facility]
[2018-04-24] MEDS ORDERED: Mag-Al 1200 mg/1200 mg/30 ML UDCUP ONE (23:15)
[2018-04-24] MEDS ORDERED: Lidocaine Viscous Sol 2% 15 ml UD Cup ONE (23:15)
[2018-04-24 23:18] LABS: CKMB 2.1 ng/mL (0-6.6); Troponin I 0.023 ng/mL (< 0.028)
[2018-04-25] MEDS ORDERED: Promethazine HCl 25 MG/ML VIAL ONE (00:35)
--- NOTE | 2018-05-08 10:51 | EKG ---
Test Reason : ABD PAIN Blood Pressure : / mmHG Vent. Rate : 062 BPM Atrial Rate : 062 BPM P-R Int : 154 ms QRS Dur : 096 ms QT Int : 426 ms P-R-T Axes : 037 -69 063 degrees QTc Int : 432 ms Normal sinus rhythm Possible Left atrial enlargement Left anterior fascicular block Nonspecific ST and T wave abnormality Abnormal ECG Confirmed by ETHAN COLORADO DO ([id number]), city editor CASANDRA MILES ([id number]) on 05/08/2018 10:51:21 AM Referred By: Confirmed By:ETHAN COLORADO DO
== END 2018-04-25 06:33 | disposition home or self-care (01) ==
LOC: ERS 21:31
DX: R10.13 Epigastric pain (principal); R11.2 Nausea with vomiting, unspecified; I25.2 Old myocardial infarction; E11.9 Type 2 diabetes mellitus without complications; I11.0 Hypertensive heart disease with heart failure; I50.9 Heart failure, unspecified; E78.5 Hyperlipidemia, unspecified; Z79.899 Other long term (current) drug therapy
CPT/HCPCS: 36415; 71045; 80053; 82553; 83690; 84484; 85025; 93005; 96361; 96365; 96366; 96372; 96375; J2270; J2405; J2550; Q0162

== ENCOUNTER 2018-06-09 03:24 | Observation (INO) | payer MEDICARE, MEDICAID ==
[2018-06-09] MEDS ORDERED: Ondansetron PF 4 MG/2 ML Vial IVP PRN ×2 (04:00→11:39)
[2018-06-09] MEDS ORDERED: Lorazepam 2 MG/ML VIAL SLOW IVP PRN (04:00)
[2018-06-09] MEDS ORDERED: D5 1/2 NS w/20 mEq KCL 1,000 ML IV SCH (04:00)
[2018-06-09] MEDS ORDERED: Ondansetron ODT 4 MG TAB SL PRN (04:00)
[2018-06-09] MEDS ORDERED: Lorazepam 2 MG/ML VIAL ONE (04:47)
[2018-06-09] MEDS ORDERED: Haloperidol Lactate 5 MG/ML VIAL ONE (04:47)
[2018-06-09 07:46] VITALS: BMI 29.6
[2018-06-09] MEDS ORDERED: Ondansetron ODT 4 MG TAB PO PRN ×2 (11:39)
[2018-06-09] MEDS ORDERED: Cyclobenzaprine 10 MG TAB PO PRN (11:39)
[2018-06-09] MEDS ORDERED: Dextrose 5% in Water 1,000 ML IV PRN (11:39)
[2018-06-09] MEDS ORDERED: Dextrose 50% Abboject 50 ML SYRINGE SLOW IVP PRN (11:39)
[2018-06-09] MEDS ORDERED: Acetaminophen 325 MG TAB PO PRN (11:39)
[2018-06-09] MEDS ORDERED: Acetaminophen 650 MG Suppository PR PRN (11:39)
[2018-06-09] MEDS ORDERED: Promethazine 25 MG TAB PO PRN (11:39)
[2018-06-09] MEDS ORDERED: HumaLOG 300 UNITS/3 ML VIAL SC PRN ×2 (11:39)
[2018-06-09] MEDS ORDERED: traMADol HCl 50 MG TAB PO SCH (12:00)
[2018-06-09 12:28] VITALS: TEMP 98.7
[2018-06-09] MEDS ORDERED: Haloperidol Lactate 5 MG/ML VIAL SLOW IVP SCH (16:00)
[2018-06-09 16:11] VITALS: BP 152/74
[2018-06-09] MEDS ORDERED: Carvedilol 3.125 MG TAB PO SCH (17:00)
[2018-06-10] MEDS ORDERED: Lisinopril 10 MG TAB PO SCH (09:00)
[2018-06-10] MEDS ORDERED: Allopurinol 100 MG TAB PO SCH (09:00)
--- NOTE | 2018-08-30 10:08 | DIS ---
DATE OF ADMISSION: 06/09/2018 DATE OF DISCHARGE: 06/09/2018 SHORT-STAY SUMMARY PRIMARY CARE PHYSICIAN: Ansley Vaughan PA-C DISCHARGE DIAGNOSES: 1. Intractable nausea and vomiting. 2. Hypokalemia. 3. Hyperemesis cannabinoid syndrome. CONSULTATION: None. PROCEDURES: None. HISTORY AND PHYSICAL: Mr. Ureña is a 63-year-old gentleman with a history of a fairly significant chronic marijuana use, who presented to an outside emergency department with intractable nausea and vomiting. He was dehydrated and had low potassium, so was transferred here. On arrival, he was examined in the ER. We were called for admission. HOSPITAL COURSE: The patient is seen and examined by me on admission. The patient was initially accepted by Dr. Ortez for admission. The patient had been hydrated overnight on transition orders from the ER, and was feeling much better and potassium had normalized. His nausea was better after a dose of Haldol and he was stable for discharge with outpatient followup. PAST MEDICAL HISTORY: 1. Marijuana abuse. 2. Coronary artery disease with history of ME in the past. 3. Chronic systolic CHF. 4. Diabetes mellitus, type 2. 5. Hypertension, essential. 6. Hyperlipidemia. 7. History of peptic ulcer disease without active bleed. PAST SURGICAL HISTORY: Includes; 1. Cholecystectomy. 2. Right hand repair. HOME MEDICATIONS: 1. Carvedilol 12.5 mg p.o. b.i.d. 2. Lisinopril 40 mg p.o. daily. 3. Pantoprazole 40 mg daily. 4. Cyclobenzaprine 10 mg p.o. t.i.d. p.r.n. 5. Tamsulosin 0.4 mg p.o. daily. 6. Atorvastatin 40 mg p.o. q.h.s. 7. Allopurinol 100 mg daily. The patient has been unable to keep his medicines down for the last 2 days because of the hyperemesis. ALLERGIES: ASPIRIN CAUSES CRAMPING. FAMILY HISTORY: Negative for clotting or bleeding disorders, no immune dysfunction. SOCIAL HISTORY: As above. Denies any tobacco or illicit drug use, otherwise. Does not drink. REVIEW OF SYSTEMS: All systems reviewed and negative except as stated in the HPI. PHYSICAL EXAMINATION: VITAL SIGNS: Temperature on arrival to the ER 99.4, pulse 73, blood pressure 165/80, respiratory rate 12, and saturating 100% on room air. On arrival to the floor, temperature was 97.7. Vital signs were stable and on discharge in the afternoon, blood pressure was stable at 152/74. GENERAL: The patient is awake and alert. He is in no acute distress. He is a well-developed, well-nourished, obese male. HEENT: Normocephalic, atraumatic. Pupils are equal, round, and reactive to light bilaterally. Mucous membranes are moist. No visible lesion. No thrush. NECK: Supple. There is no lymphadenopathy, JVD, or thyromegaly. There is no carotid upstroke without bruits. LUNGS: Clear. No wheezes, no rales, no rhonchi with good air movement. Symmetric chest excursion. ABDOMEN: Soft, nontender, and nondistended. No masses. No organomegaly. No rebound, rigidity, or guarding. He has good bowel sounds in all 4 quadrants. EXTREMITIES: No cyanosis or clubbing. No edema. SKIN: Warm, moist, and well perfused. No rashes or lesions. MUSCULOSKELETAL: Normal to inspection. Large joints appear normal. No evidence of inflammation or palpable effusion. NEUROLOGIC: Cranial nerves II through XII are grossly intact. He has no focal neurologic deficits. LABORATORY DATA: Labs on admission, glucose is 110. Labs reviewed from the outside facility at [facility] showed a CBC with a white count of 8.2, hemoglobin 17.1, hematocrit 50.6, and platelet count of 196 with normal differential. Chemistry shows sodium of 147, potassium 3.1, chloride of 109, bicarb 22, BUN 9, creatinine 0.97, and glucose of 84. Liver functions within normal limits. CK-MB is normal at 1.4 and troponin I is normal at 0.028. Lipase slightly elevated at 144. Urine drug screen negative except for cannabinoids. RADIOGRAPHIC STUDIES: Chest x-ray and CT of abdomen and pelvis at [facility] were reviewed. No acute pathology. ASSESSMENT AND PLAN: 1. Hyperemesis cannabinoid syndrome. The patient got Haldol at the outside ER. He is feeling better. We will monitor him and make sure his blood pressure is controlled on his home medications and discharged later this afternoon. 2. Hypertension. 3. Coronary artery disease. 4. Peptic ulcer disease. We will continue his home medications. HOSPITAL COURSE: The patient was monitored through the course of the day. He was stable for discharge in the afternoon. His blood pressure was controlled. Discharge medications, see above. DISCHARGE CONDITION: Stable. DISPOSITION: He will be discharged home via private vehicle. FOLLOWUP: Followup appointment is with primary care physician within a week. Job ID: [id number] MTDD
== END 2018-06-09 16:05 | disposition home or self-care (01) ==
LOC: ERS 03:24 → 2SW 07:04
PROVIDERS: ADMIT Internal Medicine; ATTEND Internal Medicine
DX: F12.188 Cannabis abuse with other cannabis-induced disorder (principal); R11.2 Nausea with vomiting, unspecified; E87.6 Hypokalemia; E86.0 Dehydration; I25.10 Atherosclerotic heart disease of native coronary artery without angina pectoris; I25.2 Old myocardial infarction; I11.0 Hypertensive heart disease with heart failure; I50.22 Chronic systolic (congestive) heart failure; E11.9 Type 2 diabetes mellitus without complications; E78.5 Hyperlipidemia, unspecified; Z79.899 Other long term (current) drug therapy; Z88.8 Allergy status to other drugs, medicaments and biological substances
CPT/HCPCS: 82962; 96361; 96365; 96366; 96375; 99285; G0378 ×2; 36416; J1630; J2060

== ENCOUNTER 2018-07-30 07:43 | Outpatient (CLI) | payer MEDICARE, MEDICAID ==
--- NOTE | 2018-07-30 14:13 | NM ---
GASTRIC EMPTYING EVALUATION: INDICATION: Nausea with vomiting. RADIOPHARMACEUTICAL: 2.2 mCi of Technetium 99m sulfur colloid orally in eggs. FINDINGS: There was 22% emptying at the 34 minute time pippa. There was 27% emptying at the 71 minute time pippa . There was 56% emptying at the 120 minute time pippa. There was 71% emptying at the 172 minute time pippa. There was 89% emptying at the 237 minute time pippa. The T-1/2 is 110 minutes. IMPRESSION: Delayed gastric emptying. POS: [facility]
== END 2018-07-30 07:44 | disposition home or self-care (01) ==
LOC: NM 07:43
PROVIDERS: ATTEND Physician Assistant Medical
DX: R11.2 Nausea with vomiting, unspecified (principal)
CPT/HCPCS: 78264; A9541

== ENCOUNTER 2018-08-27 10:11 | Outpatient (CLI) | payer MEDICARE, MEDICAID ==
--- NOTE | 2018-09-01 14:38 | EEG ---
Referring Physician: DR. SUSHMA KINCAID EEG # [id number] TEST TYPE: ROUTINE OUTPATIENT REPORT: AN EEG USING THE INTERNATIONAL TEN-TWENTY SYSTEM OF ELECTRODE PLACEMENT WAS PERFORMED. The waking background is a 9 hertz alpha frequency. The patient became drowsy, but no sleep was seen. Hyperventilation and photic stimulation were unremarkable. No epileptiform features were present. IMPRESSION: NORMAL AWAKE AND DROWSY EEG. Predictive Maintenance Technician: [employer] Text[employer] Finisher: [email or web address] ALDRIDGE
== END 2018-08-27 10:12 | disposition home or self-care (01) ==
LOC: EEG 10:11
PROVIDERS: ATTEND Internal Medicine Gastroenterology
DX: R11.2 Nausea with vomiting, unspecified (principal)
CPT/HCPCS: 95816

== ENCOUNTER 2020-03-18 07:32 | Observation (INO) | payer MEDICARE, MEDICAID ==
[2020-03-18] MEDS ORDERED: Nitroglycerin 2% Ointment 1 INCH/1 GM Packet ONE (09:15)
[2020-03-18] MEDS ORDERED: Aspirin Chewable 81 MG TAB ONE (09:15)
[2020-03-18 10:10] LABS: #Basophils 0.1 thou/uL (0.0-0.2); #Eosinphils 0.1 thou/uL (0.0-0.7); #Lymphocytes 1.6 thou/uL (1.20-3.40); #Monocytes 0.6 thou/uL (0.11-0.59); #Neutrophils 4.8 thou/uL (1.40-6.50); %Basophils 0.7 % (0.0-1.0); %Lymphocytes 22.8 % (21.0-51.0); %Monocytes 8.2 % (0.0-10.0); %Neutrophils 67.3 % (42.0-75.0); Hemoglobin 16.2 g/dL (14.0-18.0); Mean Corpuscular HGB CONC 34.4 g/dL (32.0-36.0); Mean Corpuscular Hemoglobin 32.7 pg (27.0-31.0); Mean Corpuscular Volume 94.9 fL (78.0-98.0); Mean Platelet Volume 8.2 fL (7.4-10.4); Platelet Count 193 thou/uL (130-400); RBC Distribution Width 11.9 % (11.5-14.5); Red Blood Cell (RBC) Count 4.96 mill/uL (4.70-6.10); White Blood Cell (WBC) Count 7.1 thou/uL (4.8-10.8)
[2020-03-18 10:27] LABS: ALT (SGPT) 24 U/L (8-55); AST (SGOT) 31 U/L (5-34); Albumin 4.3 g/dL (3.4-4.8); Alkaline Phosphatase 40 U/L (40-110); Anion Gap 17 mmol/L (10-20); BUN (Urea Nitrogen) 13 mg/dL (8.4-25.7); Bilirubin, Total 0.3 mg/dL (0.2-1.2); CK (CPK) 116 U/L (30-200); Calc. Creatinine Clearance 0 mL/min (70-130); Calcium 9.5 mg/dL (7.8-10.44); Carbon Dioxide 20 mmol/L (23-31); Chloride 105 mmol/L (98-107); Estimated GFR-MDRD Greater than 90; Globulin 3.2 g/dL (2.4-3.5); Glucose 126 mg/dL (80-115); Lipase 35 U/L (8-78); Potassium 4.6 mmol/L (3.5-5.1); Protein, Total 7.5 g/dL (5.8-8.1); Sodium 137 mmol/L (136-145)
--- NOTE | 2020-03-18 10:50 | RAD ---
FRONTAL RADIOGRAPH CHEST: 03/18/2020 HISTORY: Pacemaker malfunction. COMPARISON: 02/21/2019 FINDINGS: There is a left-sided dual-lead pacing device with leads overlying the right atrium and right ventric le. The lungs are clear. The heart and mediastinal contours are unremarkable. IMPRESSION: No acute findings. POS: [facility]
--- NOTE | 2020-03-18 11:53 | CT ---
CTA CHEST WITH CONTRAST: INDICATIONS: Elevated D-dimer. History of pacemaker and cardiac disease. TECHNIQUE: Multiple axial tomograms obtained following angio protocol with multiplanar reconstruction and 3D pos t processing. FINDINGS: The pulmonary arteries show adequate enhancement. There is no evidence of pulmonary embolus. The lung jean-baptiste are clear. The mediastinum is unremarkable. The upper abdomen is unremarkable. There is an exophytic cyst from the left kidney, measuring approximately 3 cm. Osseous structures unremarka ble. IMPRESSION: 1. No evidence of pulmonary embolus. 2. No acute lung process. POS: [facility]
[2020-03-18] MEDS ORDERED: Ondansetron ODT 4 MG TAB SL PRN (14:17)
[2020-03-18] MEDS ORDERED: Ondansetron PF 4 MG/2 ML Vial IVP PRN (14:17)
[2020-03-18] MEDS ORDERED: Sodium Chloride 0.9% 1,000 ML IV SCH (14:17)
[2020-03-18] MEDS ORDERED: Iopamidol-370 76% 500 ML 1 ML ONE (14:17)
[2020-03-18 14:51] VITALS: BMI 28.1
[2020-03-18] MEDS ORDERED: Cyclobenzaprine 10 MG TAB PO PRN (14:57)
[2020-03-18] MEDS: Carvedilol 6.25 MG TAB PO SCH (17:02)
--- NOTE | 2020-03-18 17:14 | CON ---
DATE OF CONSULTATION: 03/18/2020 REASON FOR CONSULTATION: AICD shock. HISTORY OF PRESENT ILLNESS: Mr. Ureña is a very pleasant 64-year-old gentleman, well known to myself, who comes to the hospital for having received an AICD shock. He has a history of a dilated nonischemic cardiomyopathy. His EF at one point was down to 30% to 35%, eventually got better up to normal and eventually got down again failed medical therapy and received an AICD. This was some years back. Last EF was normal. Last evaluation in the office was in August and at that time AICD showed very brief episodes of atrial fibrillation. We spoke about possible anticoagulation versus aspirin alone as his CHADS-VASc score was 3 and he declined full anticoagulation at that time given his abdominal issues. He has a lot of chronic nausea and vomiting. He was started on aspirin, has been on this since. Today, he comes in as he received a shock. Interrogation showed multiple episodes of atrial fibrillation. His atrial fibrillation burden has increased significantly. He currently denies any chest pain, tightness, pressure, or shortness of breath. PAST MEDICAL HISTORY: 1. Nonischemic cardiomyopathy, normalized EF last evaluation. 2. Rlkf-uu-znyewbff coronary artery disease. 3. Type 2 diabetes. 4. Hypertension. 5. Hyperlipidemia. 6. Gout. SURGICAL HISTORY: 1. Cardiac catheterization was normal in 2015. 2. Cholecystectomy. 3. AICD placement. ALLERGIES: ASPIRIN HAS CAUSED HIM TO HAVE CRAMPS AT FULL DOSE, BUT HE IS TOLERATING THE 81 MG. OUTPATIENT MEDICATIONS: 1. Allopurinol. 2. Lipitor 40 mg a day. 3. Protonix 40 mg a day. 4. Carvedilol 12.5 b.i.d. 5. Tamsulosin. 6. Entresto 49/51. 7. Hyoscyamine. 8. Dexilant. 9. Cyclobenzaprine (Flexeril). 10. Promethazine. 11. Zofran p.r.n. 12. Reglan p.r.n. FAMILY HISTORY: Noncontributory. SOCIAL HISTORY: No alcohol, tobacco, or drugs. REVIEW OF SYSTEMS: A 12-point review of systems was done and was all negative unless stated in the history of present illness. PHYSICAL EXAMINATION: VITAL SIGNS: Temperature 98.8, pulse 56, respiratory rate 17, saturating 95% on room air, blood pressure 130/72. GENERAL: Awake, alert, and oriented x3. No distress. HEENT: Normocephalic, atraumatic. NECK: Supple. LUNGS: Clear. CARDIOVASCULAR: S1 and S2. No S3 or S4. No murmurs. ABDOMEN: Soft. Positive bowel sounds. EXTREMITIES: No edema. SKIN: Warm and dry. LABORATORY DATA: Laboratory work was reviewed. White count of 7, hemoglobin 16, hematocrit of 47, and platelet count of 193. Coags, D-dimer was 0.49. Chemistries were unremarkable except for a glucose of 126. Troponin was 0.01, and 0.08. BNP was less than assay limit. Albumin was 4.3. Lipase was normal. EKG was reviewed. ICD interrogation was reviewed. He has had several episodes that were labeled as VT or nonsustained VT that were actually atrial fibrillation with rapid ventricular response. CT of the chest showed no evidence of pulmonary embolism. ASSESSMENT: 1. Paroxysmal atrial fibrillation. 2. Inappropriate AICD shock. 3. History of nonischemic cardiomyopathy, most recently normalized ejection fraction. 4. Chronic nausea and vomiting. PLAN: 1. His atrial fibrillation burden I think is definitely higher than before. We will plan on changing his full anticoagulation from aspirin alone to Eliquis 5 mg twice a day. Also, given his worsening atrial fibrillation burden, I would probably want to start him on an antiarrhythmic. We will plan on doing amiodarone load. We will start with p.o. 400 mg b.i.d. for 10 days. 2. We will consult Electrophysiology. He will need to have some of his parameters of the pacemaker/defibrillator changed, but for me I would like to have their opinion on guidance as to any other antiarrhythmic that they would think more suitable in this situation. Thank you for letting us participate in the care of your patient. We will follow. Job ID: [id number]
[2020-03-18 18:00] LABS: Troponin I 0.095 ng/mL (< 0.028)
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
[2020-03-18] MEDS: Tamsulosin HCl 0.4 MG CAP PO SCH (20:29)
[2020-03-18] MEDS: Atorvastatin Calcium 40 MG TAB PO SCH (20:29)
[2020-03-18] MEDS: Famotidine 20 MG TAB PO SCH (20:47)
[2020-03-18] MEDS ORDERED: Lidocaine 2% Viscous Solution 10 ML, Aluminum & Magnesium Hydroxide 30 ML SSW SCH (21:00)
[2020-03-19] MEDS: Lisinopril 20 MG TAB PO SCH (09:19)
[2020-03-19] MEDS: Allopurinol 100 MG TAB PO SCH (09:20)
[2020-03-19] MEDS: Carvedilol 6.25 MG TAB PO SCH ×2 (10:52→17:48)
[2020-03-19] MEDS: Sotalol HCl 80 MG TAB PO SCH ×2 (10:53→21:44)
--- NOTE | 2020-03-19 12:01 | EKG ---
Test Reason : Blood Pressure : / mmHG Vent. Rate : 074 BPM Atrial Rate : 036 BPM P-R Int : 000 ms QRS Dur : 166 ms QT Int : 430 ms P-R-T Axes : 042 119 -52 degrees QTc Int : 477 ms Demand pacemaker; interpretation is based on intrinsic rhythm Marked sinus bradycardia with Premature ventricular complexes or Fusion complexes Right bundle branch block T wave abnormality, consider inferolateral ischemia Abnormal ECG Confirmed by MALORIE NELSON, NISH ([id number]), online editor CASANDRA MILES ([id number]) on 03/19/2020 12:01:15 PM Referred By: Confirmed By:NISH ESPANA MD
[2020-03-19] MEDS: Famotidine 20 MG TAB PO SCH ×2 (12:55→21:45)
--- NOTE | 2020-03-19 13:48 | PDOC.CPN ---
- Subjective Date: 03/19/20 Time: 13:46 Interval history: He is doing well. No more AICD shocks. - Review of Systems General: denies: fever/chills, weight/appetite/sleep changes, night sweats, fatigue Respiratory: denies: cough, congestion, shortness of breath, exercise intolerance Cardiovascular: denies: chest pain, palpitation, edema, paroxysmal nocturnal dyspnea, orthopnea Gastrointestinal: denies: nausea, vomiting, diarrhea, constipation, abd pain, GI bleeding Musculoskeletal: denies: pain, tenderness, stiffness, swelling, arthritis/ arthralgias Neurological: denies: numbness, syncope, seizure, weakness - Objective Allergies/Adverse Reactions: Allergies Allergy/AdvReac Type Severity Reaction Status Date / Time aspirin Allergy Mild cramping Verified 12/12/19 16:32 Visit Medications: Current Medications Allopurinol (Zyloprim) 100 mg PO DAILY [facility] Last Admin: 03/19/20 09:20 Dose: Not Given Atorvastatin Calcium (Lipitor) 40 mg PO [facility] Last Admin: 03/18/20 20:29 Dose: 40 mg Carvedilol (Coreg) 12.5 mg PO BID-[facility] Last Admin: 03/19/20 10:52 Dose: 12.5 mg Cyclobenzaprine HCl (Flexeril) 10 mg PO TID PRN PRN Reason: Muscle Spasm Famotidine (Pepcid) 20 mg PO BID [facility] Last Admin: 03/19/20 12:55 Dose: Not Given Lisinopril (Zestril) 40 mg PO DAILY [facility] Last Admin: 03/19/20 09:19 Dose: 40 mg Pantoprazole Sodium (Protonix) 40 mg PO DAILY [facility] Last Admin: 03/19/20 09:19 Dose: 40 mg Sotalol HCl (Betapace) 120 mg PO BID [facility] Last Admin: 03/19/20 10:53 Dose: 120 mg Tamsulosin HCl (Flomax) 0.4 mg PO [facility] Last Admin: 03/18/20 20:29 Dose: 0.4 mg Vital Signs & Weight: Vital Signs Temp Pulse Resp BP BP Pulse Ox 03/19/20 11:50 97.8 F 50 L 16 156/77 H 98 03/19/20 09:19 130/66 03/19/20 07:40 98.5 F 51 L 16 131/66 97 03/19/20 04:00 98.1 F 52 L 16 140/76 97 Admit Weight 169 lb Weight 169 lb - Physical Exam General: alert & oriented x3 HEENT: mucus membranes moist Neck: supple neck Cardiac: regular rate and rhythm Lungs: clear to auscultation Neuro: grossly intact Abdomen: active bowel sounds Extremities: no cyanosis, no edema Skin: clear Musculoskeletal: no pain - Labs Result Diagrams: 03/18/20 09:55 03/18/20 09:55 Troponin/CKMB Troponin I 0.095 ng/mL (< 0.028) H 03/18/20 17:25 - Telemetry Sinus rhythms and dysrhythmias: other (A paced.) - Assessment/Plan Assessment/Plan: 1. AICD shock, innapropriate 2. Paroxysmal afib 3. CHADS-VASc score of 3 (HTN, CGF, age) PLAN: - Appreciate EP consult. - Sotalol. - Will monitor QT today and tomorrow. - Eliquis for stroke prophylaxis.
--- NOTE | 2020-03-19 14:28 | PDOC.HOSPP ---
- Subjective Encounter Date: 03/19/20 Encounter Time: 10:00 Subjective: no chest pain or sob or palp feels better - Objective Vital Signs & Weight: Vital Signs (12 hours) Temp Pulse Resp BP BP Pulse Ox 03/19/20 11:50 97.8 F 50 L 16 156/77 H 98 03/19/20 09:19 130/66 03/19/20 07:40 98.5 F 51 L 16 131/66 97 03/19/20 04:00 98.1 F 52 L 16 140/76 97 Weight Admit Weight 169 lb Weight 169 lb I&O: 03/18/20 03/19/20 03/20/20 06:59 06:59 06:59 Intake Total 1360 Balance 1360 Result Diagrams: 03/18/20 09:55 03/18/20 09:55 Hospitalist ROS - Medication Medications: Active Medications Generic Name Dose Route Start Last Admin Trade Name Freq PRN Reason Stop Dose Admin Allopurinol 100 mg 03/19/20 09:00 03/19/20 09:20 Zyloprim PO Not Given DAILY [facility] Atorvastatin Calcium 40 mg 03/18/20 21:00 03/18/20 20:29 Lipitor PO 40 mg HS MAGDALENE Administration Carvedilol 12.5 mg 03/18/20 17:00 03/19/20 10:52 Coreg PO 12.5 mg BID-WM MAGDALENE Administration Famotidine 20 mg 03/18/20 21:00 03/19/20 12:55 Pepcid PO Not Given BID MAGDALENE Lisinopril 40 mg 03/19/20 09:00 03/19/20 09:19 Zestril PO 40 mg DAILY MAG[facility]ALENE Administration Pantoprazole Sodium 40 mg 03/19/20 09:00 03/19/20 09:19 Protonix PO 40 mg DAILY MAGDALENE Administration Sotalol HCl 120 mg 03/19/20 09:00 03/19/20 10:53 Betapace PO 120 mg BID MAGDALENE Administration Tamsulosin HCl 0.4 mg 03/18/20 21:00 03/18/20 20:29 Flomax PO 0.4 mg HS MAGDALENE Administration - Exam General Appearance: awake alert Eye: PERRL, anicteric sclera ENT: no oropharyngeal lesions, moist mucosa Neck: supple, no JVD Heart: RRR, no murmur Respiratory: no wheezes, no rales Gastrointestinal: soft, non-tender, non-distended, normal bowel sounds Extremities: no cyanosis, no edema Neurological: cranial nerve grossly intact, no focal deficits Psychiatric: normal affect, A&O x 3 Hosp A/P (1) Inappropriate shocks from ICD (implantable cardioverter-defibrillator) Code(s): T82.198A - [facility] COMPL OF OTHER CARDIAC ELECTRONIC DEVICE, INIT ENCNTR Status: Acute Qualifiers: Encounter type: subsequent encounter Qualified Code(s): T82.198D - Other mechanical complication of other cardiac electronic device, subsequent encounter (2) Afib Code(s): I48.91 - UNSPECIFIED ATRIAL FIBRILLATION Status: Chronic Qualifiers: Atrial fibrillation type: paroxysmal Qualified Code(s): I48.0 - Paroxysmal atrial fibrillation (3) Cardiomyopathy Code(s): I42.9 - CARDIOMYOPATHY, UNSPECIFIED Status: Chronic Qualifiers: Cardiomyopathy type: dilated Qualified Code(s): I42.0 - Dilated cardiomyopathy (4) DM type 2 (diabetes mellitus, type 2) Status: Chronic Qualifiers: Diabetes mellitus supervisor intermediates insulin use: without senior care use (5) Dyslipidemia Code(s): E78.5 - HYPERLIPIDEMIA, UNSPECIFIED Status: Chronic (6) Gout Code(s): M10.9 - GOUT, UNSPECIFIED Status: Chronic Qualifiers: Gout site: unspecified site Presence of tophus: without tophus (7) Hypertension Code(s): I10 - ESSENTIAL (PRIMARY) HYPERTENSION Status: Chronic Qualifiers: Hypertension type: essential hypertension Qualified Code(s): I10 - Essential (primary) hypertension - Plan is on coreg and sotalol for rate control of afib continue lisinopril, lipitor, flomax and allopurinol hemostable likely dc plan in am per cardio/EP advice
--- NOTE | 2020-03-19 15:06 | CON ---
DATE OF CONSULTATION: 03/19/2020 Dictated by Vianney Calvo, Nurse Practitioner, as scribe for Dr. Alex Warren. REASON FOR CONSULTATION: ICD and arrhythmia management, atrial fibrillation. HISTORY OF PRESENT ILLNESS: Mr. Ureña is a pleasant 64-year-old gentleman, known to our service for history of ICD implant in June with a [employer] Fort[employer] Assura dual-chamber system. He is followed by Dr. Sloan for cardiology care. He presented to the hospital receiving an AICD shock. His device was interrogated and he was seen to have increasing atrial fibrillation episodes, though brief, and his ventricular rates were occasionally exceedingly fast and he then received a shock. EP consultation has been requested for guidance on antiarrhythmic therapy, arrhythmia management, and ICD management. Mr. Ureña is currently feeling well. He denies any current heart racing, palpitations, repeat ICD shocks, stroke, or stroke-like symptoms. He has chronic nausea, vomiting, and also fatigue. REVIEW OF SYSTEMS: A 12-point review of systems was unremarkable except that listed above in HPI. PAST MEDICAL HISTORY: 1. Chronic systolic congestive heart failure, ischemic cardiomyopathy. a. 2D echo on 05/30/2019, EF 30% to 35% with mild valvular disease. b. Echo on 01/26/2019, LVEF 20% to 25%. c. Left heart catheterization in November 2015, moderate circumflex disease only. 2. Palpitations. 3. PVCs. 4. Hypertension. 5. Type 2 diabetes. 6. Hyperlipidemia. 7. Gout. 8. Enlarged prostate. 9. [employer] dual-chamber ICD implant 07/01/2019. ALLERGIES: ASPIRIN. HOME MEDICATIONS: Include; 1. Protonix 40 mg daily. 2. Lisinopril 40 mg daily. 3. Coreg 12.5 mg b.i.d. 4. Lipitor 40 mg daily. 5. Flomax 0.4 mg daily. 6. Entresto 49/51 mg b.i.d. 7. Hyoscyamine sulfate 0.25 mg q.4 hours p.r.n. 8. Dexilant p.r.n. 9. Flexeril p.r.n. 10. Zyloprim 100 mg daily. 11. Phenergan p.r.n. 12. Zofran p.r.n. 13. Reglan p.r.n. FAMILY HISTORY: Negative for sudden cardiac or early-onset CAD. SOCIAL HISTORY: Denies alcohol, illicit drug use, or tobacco. OBJECTIVE: VITAL SIGNS: Temperature 98.5, pulse 50, blood pressure 130/66, respirations 16, and oxygen is 97% on room air. GENERAL: The patient is alert and oriented. Speech is clear. Affect is appropriate. He is in no apparent distress at the time of the exam. Resting comfortably in bed. HEENT: He is normocephalic and atraumatic. Sclerae are anicteric. EOMs are intact. Oral mucosa is moist and pink with adequate dentition. NECK: Supple without jugular venous distention. There is no lymphadenopathy. LUNGS: Clear to auscultation bilaterally without wheezes, crackles, or rhonchi. HEART: Rate is irregularly irregular with crisp S1 and S2. There is a left precordial device, site is without reaction. ABDOMEN: Soft nontender without palpable masses. EXTREMITIES: Warm and dry to touch. Well perfused without clubbing, cyanosis, or edema. NEUROLOGIC: Grossly intact and nonfocal. Gait was not assessed. DATABASE: Device check reveals [employer] Yvonne De La Rosa, date of implant is 07/01/2019, it is a dual-chamber ICD. Lead parameters are stable. Mode is DDDR with a base rate of 50 beats per minute, max track rate of 90. Frequent mode switches, AF burden is documented less than 1%. The patient had episode of rapid atrial fibrillation that met the VF qualifier based on rate and resulted in a shock. Otherwise, device is functioning normally, CorVue is stable. RVR is noted during mode switch with ventricular rates 120 to 140 beats per minute, occasionally more rapid between 160 and 180 beats per minute and occasionally over 200. The rapid episode that required ICD shock, ventricular rate was 244 beats per minute. ATP was attempted, which was unsuccessful and then shock was delivered. Baseline EKG shows sinus bradycardia at 53 beats per minute. ND interval is 152 milliseconds, QRS duration 104 milliseconds, QT/QTc is 448/420 millisecond. LABORATORY DATA: Hematology was unremarkable. Chemistry; potassium is 4.6. Liver enzymes within normal ranges. Serial troponins trending up though at indeterminate ranges. BNP less than 10. Magnesium has not been checked. IMPRESSION: 1. ICD shocks secondary to atrial fibrillation with RVR. 2. Paroxysmal atrial fibrillation, occasionally with RVR. 3. Frequent PVCs. 4. Chronic systolic congestive heart failure with nonischemic cardiomyopathy, EF historically 30% to 35% by echo on 05/30/2019. 5. Hypertension, diabetes, hyperlipidemia. 6. Status post dual-chamber [employer] ICD implant with adequate function as detailed above. 7. CHADS-VASc score of 5 on the basis of advancing age, hypertension, diabetes, heart failure, and vascular disease. Currently, not on anticoagulation, previously on aspirin. PLAN AND RECOMMENDATIONS: Mr. Ureña is a very pleasant gentleman, we find he has paroxysmal episodes of atrial fibrillation that burden is still relatively low, but episodes are fast. The rate met one of the indicators qualifying for an ICD shock concerning in the VF zone. Otherwise, his ICD is functioning adequately. He is seen to have fairly frequent PVCs as well. For this, I would recommend initiating sotalol 120 mg b.i.d. and monitoring his QT for at least 2 days on telemetry with EKGs 2 to 3 hours after every dose of sotalol. His baseline QTc is stable. If QTc exceeds 500, I will adjust dose down accordingly. To prevent QT prolongation and bradycardia and subsequent potential polymorphic ventricular tachycardia, I will increase his lower rate limit to 70 beats per minute. His CHADS-VASc is elevated and he does require anticoagulation, so I concur with the addition of Eliquis 5 mg b.i.d. May benefit from an outpatient PVI down the line. Thank you for allowing me to participate in the care of this patient. Job ID: [id number]
[2020-03-19] MEDS: Tamsulosin HCl 0.4 MG CAP PO SCH (21:44)
[2020-03-19] MEDS: Apixaban 5 MG TAB PO SCH (21:44)
[2020-03-19] MEDS: Atorvastatin Calcium 40 MG TAB PO SCH (21:45)
[2020-03-20] MEDS: Carvedilol 6.25 MG TAB PO SCH ×2 (08:18→18:06)
[2020-03-20] MEDS: Allopurinol 100 MG TAB PO SCH (08:19)
[2020-03-20] MEDS: Apixaban 5 MG TAB PO SCH ×2 (08:19→20:38)
[2020-03-20] MEDS: Famotidine 20 MG TAB PO SCH ×2 (08:19→20:38)
[2020-03-20] MEDS: Lisinopril 20 MG TAB PO SCH (08:19)
[2020-03-20] MEDS: Sotalol HCl 80 MG TAB PO SCH ×2 (08:19→20:38)
--- NOTE | 2020-03-20 13:37 | PDOC.HOSPP ---
- Subjective Encounter Date: 03/20/20 Encounter Time: 09:00 Subjective: no c/o chest pain or palp or sob is amb in room - Objective Vital Signs & Weight: Vital Signs (12 hours) Temp Pulse Resp BP Pulse Ox 03/20/20 12:01 97.9 F 71 16 176/98 H 97 03/20/20 08:19 72 03/20/20 08:15 97.4 F L 72 20 162/91 H 95 03/20/20 05:01 98.0 F 70 15 138/91 H 97 Weight Admit Weight 169 lb Weight 169 lb I&O: 03/19/20 03/20/20 03/21/20 06:59 06:59 06:59 Intake Total 1360 266 600 Balance 1360 266 600 Result Diagrams: 03/18/20 09:55 03/18/20 09:55 Hospitalist ROS - Medication Medications: Active Medications Generic Name Dose Route Start Last Admin Trade Name Freq PRN Reason Stop Dose Admin Allopurinol 100 mg 03/19/20 09:00 03/20/20 08:19 Zyloprim PO 100 mg DAILY [facility] Administration Apixaban 5 mg 03/19/20 21:00 03/20/20 08:19 Eliquis PO 5 mg BID [facility]ENE Administration Atorvastatin Calcium 40 mg 03/18/20 21:00 03/19/20 21:45 Lipitor PO 40 mg HS MAGDALENE Administration Carvedilol 12.5 mg 03/18/20 17:00 03/20/20 08:18 Coreg PO 12.5 mg BID-WM MAGDALENE Administration Famotidine 20 mg 03/18/20 21:00 03/20/20 08:19 Pepcid PO 20 mg BID [facility] Administration Lisinopril 40 mg 03/19/20 09:00 03/20/20 08:19 Zestril PO 40 mg DAILY [facility] Administration Pantoprazole Sodium 40 mg 03/19/20 09:00 03/20/20 08:19 Protonix PO 40 mg DAILY [facility] Administration Sotalol HCl 120 mg 03/19/20 09:00 03/20/20 08:19 Betapace PO 120 mg BID [facility] Administration Tamsulosin HCl 0.4 mg 03/18/20 21:00 03/19/20 21:44 Flomax PO 0.4 mg HS MAGDALENE Administration - Exam General Appearance: awake alert Eye: PERRL, anicteric sclera ENT: no oropharyngeal lesions, moist mucosa Neck: supple, no JVD Heart: RRR, no murmur Respiratory: no wheezes, no rales Gastrointestinal: soft, non-tender, non-distended, normal bowel sounds Extremities: no cyanosis, no edema Neurological: cranial nerve grossly intact, no focal deficits Psychiatric: normal affect, A&O x 3 Hosp A/P (1) Inappropriate shocks from ICD (implantable cardioverter-defibrillator) Code(s): T82.198A [facility] COMPL OF OTHER CARDIAC ELECTRONIC DEVICE, INIT ENCNTR Status: Acute Qualifiers: Encounter type: subsequent encounter Qualified Code(s): T82.198D - Other mechanical complication of other cardiac electronic device, subsequent encounter (2) Afib Code(s): I48.91 - UNSPECIFIED ATRIAL FIBRILLATION Status: Chronic Qualifiers: Atrial fibrillation type: paroxysmal Qualified Code(s): I48.0 - Paroxysmal atrial fibrillation (3) Cardiomyopathy Code(s): I42.9 - CARDIOMYOPATHY, UNSPECIFIED Status: Chronic Qualifiers: Cardiomyopathy type: dilated Qualified Code(s): I42.0 - Dilated cardiomyopathy (4) DM type 2 (diabetes mellitus, type 2) Status: Chronic Qualifiers: Diabetes mellitus fpc insulin use: without retail coverage merchandiser use (5) Dyslipidemia Code(s): E78.5 - HYPERLIPIDEMIA, UNSPECIFIED Status: Chronic (6) Gout Code(s): M10.9 - GOUT, UNSPECIFIED Status: Chronic Qualifiers: Gout site: unspecified site Presence of tophus: without tophus (7) Hypertension Code(s): I10 - ESSENTIAL (PRIMARY) HYPERTENSION Status: Chronic Qualifiers: Hypertension type: essential hypertension Qualified Code(s): I10 - Essential (primary) hypertension - Plan is on coreg and sotalol for rate control of afib, stable now continue lisinopril, lipitor, flomax and allopurinol hemostable dc plan per cardio/EP advice
--- NOTE | 2020-03-20 16:08 | PDOC.EP ---
- Subjective Date: 03/20/20 Time: 08:00 Interval History: Follow-up for atrial fibrillation and PVC management. Patient so far is tolerating sotalol without any adverse effect. He feels well denies shortness of breath, heart racing, palpitations, chest pressure, or perceived repeat ICD discharge - Review of Systems Constitutional: denies: chills, sweats, weakness Respiratory: denies: cough, shortness of breath, sputum, wheezing Cardiology: denies: chest pain, heart racing, light headedness, passing out Gastrointestinal: denies: abdominal pain, nausea, vomitting Musculoskeletal: denies: unstable gait, falls, leg pain - Objective Allergies/Adverse Reactions: Allergies Allergy/AdvReac Type Severity Reaction Status Date / Time aspirin Allergy Mild cramping Verified 12/12/19 16:32 Current Medications Allopurinol (Zyloprim) 100 mg PO DAILY [facility] Last Admin: 03/20/20 08:19 Dose: 100 mg Apixaban (Eliquis) 5 mg PO BID [facility] Last Admin: 03/20/20 08:19 Dose: 5 mg Atorvastatin Calcium (Lipitor) 40 mg PO [facility] Last Admin: 03/19/20 21:45 Dose: 40 mg Carvedilol (Coreg) 12.5 mg PO BID-[facility] Last Admin: 03/20/20 08:18 Dose: 12.5 mg Cyclobenzaprine HCl (Flexeril) 10 mg PO TID PRN PRN Reason: Muscle Spasm Famotidine (Pepcid) 20 mg PO BID [facility] Last Admin: 03/20/20 08:19 Dose: 20 mg Lisinopril (Zestril) 40 mg PO DAILY [facility] Last Admin: 03/20/20 08:19 Dose: 40 mg Pantoprazole Sodium (Protonix) 40 mg PO DAILY [facility] Last Admin: 03/20/20 08:19 Dose: 40 mg Sotalol HCl (Betapace) 120 mg PO BID [facility] Last Admin: 03/20/20 08:19 Dose: 120 mg Tamsulosin HCl (Flomax) 0.4 mg PO [facility] Last Admin: 03/19/20 21:44 Dose: 0.4 mg Vital Signs & Weight: Vital Signs Temp Pulse Resp BP Pulse Ox 03/20/20 15:41 98.3 F 67 16 162/87 H 99 03/20/20 12:01 97.9 F 71 16 176/98 H 97 03/20/20 08:19 72 03/20/20 08:15 97.4 F L 72 20 162/91 H 95 03/20/20 05:01 98.0 F 70 15 138/91 H 97 Admit Weight 169 lb Weight 169 lb I/O: I/O 03/19/20 03/20/20 03/21/20 06:59 06:59 06:59 Intake Total 1360 266 600 Balance 1360 266 600 - Quality Measures Condition: Atrial Fibrillation/Flutter (hx or current) CV meds: Eliquis: Yes - Physical Exam General: alert & oriented x3, appears well, no apparent distress, speech clear, affect appropriate HEENT: mucus membranes moist, normocephaly, mucus membranes dry Neck: supple neck, no JVD/HJR, no lymphadenopathy Cardiology: regular rate and rhythm, PMI nondisplaced Lungs: clear to auscultation, normal breath sounds, no wheeze, rales, rhonchi Neurology: cranial nerve 2-12 intact, grossly intact, no lateralizing findings Abdomen: unremarkable, active bowel sounds, no pulsations/bruits Extremities: dry, strong pulses, warm Skin: device site stable w/o swelling - Chadsvasc Risk factors Congestive heart failure: 1 Hypertension: 1 Age 65-74: 1 Diabetes mellitus: 1 Vascular disease: 1 Risk Score: 5 - Labs Result Diagrams: 03/18/20 09:55 03/18/20 09:55 - EKG Interpretation EKG Method: Telemetry EKG shows: Sinus rhythm - Device Device: dual, defibrillator Device Result: [employer] - Assessment/Plan Assessment/Plan: 1. Atrial fibrillation - low burden but with significant RVR, resulting in ICD shock 2. Dual chamber ICD - increased LRL to 70bpm on 03/19/2020 - normal operation - no further ICD shocks 3. PVC -Moderately high burden, now well suppressed with sotalol Sotalol is working well at suppressing his AF and PVCs. 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 Continue IP monitoring on telemetry with sotalol loading. QTc 450 after PM dose on 03/19. Continue Sotalol 120mg BID and anticipate DC after 1100 EKG tomorrow if QTc remains stable. Continue eliquis for anticoagulation.
--- NOTE | 2020-03-20 16:32 | PDOC.CPN ---
- Subjective Date: 03/20/20 Time: 16:31 Interval history: No new issues. - Review of Systems General: denies: fever/chills, weight/appetite/sleep changes, night sweats, fatigue Respiratory: denies: cough, congestion, shortness of breath, exercise intolerance Cardiovascular: denies: chest pain, palpitation, edema, paroxysmal nocturnal dyspnea, orthopnea Gastrointestinal: denies: nausea, vomiting, diarrhea, constipation, abd pain, GI bleeding Musculoskeletal: denies: pain, tenderness, stiffness, swelling, arthritis/ arthralgias Neurological: denies: numbness, syncope, seizure, weakness - Objective Allergies/Adverse Reactions: Allergies Allergy/AdvReac Type Severity Reaction Status Date / Time aspirin Allergy Mild cramping Verified 12/12/19 16:32 Visit Medications: Current Medications Allopurinol (Zyloprim) 100 mg PO DAILY [facility] Last Admin: 03/20/20 08:19 Dose: 100 mg Apixaban (Eliquis) 5 mg PO BID [facility] Last Admin: 03/20/20 08:19 Dose: 5 mg Atorvastatin Calcium (Lipitor) 40 mg PO HS [facility] Last Admin: 03/19/20 21:45 Dose: 40 mg Carvedilol (Coreg) 12.5 mg PO BID-WM [facility] Last Admin: 03/20/20 08:18 Dose: 12.5 mg Cyclobenzaprine HCl (Flexeril) 10 mg PO TID PRN PRN Reason: Muscle Spasm Famotidine (Pepcid) 20 mg PO BID [facility] Last Admin: 03/20/20 08:19 Dose: 20 mg Lisinopril (Zestril) 40 mg PO DAILY [facility] Last Admin: 03/20/20 08:19 Dose: 40 mg Pantoprazole Sodium (Protonix) 40 mg PO DAILY [facility] Last Admin: 03/20/20 08:19 Dose: 40 mg Sotalol HCl (Betapace) 120 mg PO BID [facility] Last Admin: 03/20/20 08:19 Dose: 120 mg Tamsulosin HCl (Flomax) 0.4 mg PO HS [facility] Last Admin: 03/19/20 21:44 Dose: 0.4 mg Vital Signs & Weight: Vital Signs Temp Pulse Resp BP Pulse Ox 03/20/20 15:41 98.3 F 67 16 162/87 H 99 03/20/20 12:01 97.9 F 71 16 176/98 H 97 03/20/20 08:19 72 03/20/20 08:15 97.4 F L 72 20 162/91 H 95 03/20/20 05:01 98.0 F 70 15 138/91 H 97 Admit Weight 169 lb Weight 169 lb - Physical Exam General: alert & oriented x3 HEENT: mucus membranes moist Neck: supple neck Cardiac: regular rate and rhythm Lungs: clear to auscultation Neuro: grossly intact Abdomen: active bowel sounds Extremities: no edema Skin: clear Musculoskeletal: no pain - Labs Result Diagrams: 03/18/20 09:55 03/18/20 09:55 Troponin/CKMB Troponin I 0.095 ng/mL (< 0.028) H 03/18/20 17:25 - Telemetry Sinus rhythms and dysrhythmias: other (A paced.) - Assessment/Plan Assessment/Plan: 1. AICD shock, innapropriate 2. Paroxysmal afib 3. CHADS-VASc score of 3 (HTN, CGF, age) PLAN: - Appreciate EP consult. - Sotalol. - QTc at 450. - Continue to monitor QT tomorrow. - Eliquis for stroke prophylaxis. - Home tomorrow if QTc not prolonguing.
[2020-03-20] MEDS: Atorvastatin Calcium 40 MG TAB PO SCH (20:38)
[2020-03-20] MEDS: Tamsulosin HCl 0.4 MG CAP PO SCH (20:39)
[2020-03-20] MEDS ORDERED: Senokot S 8.6-50 MG TAB PO PRN (21:45)
[2020-03-21] MEDS: Famotidine 20 MG TAB PO SCH (08:57)
[2020-03-21] MEDS: Sotalol HCl 80 MG TAB PO SCH (08:57)
[2020-03-21] MEDS: Apixaban 5 MG TAB PO SCH (08:57)
[2020-03-21] MEDS: Carvedilol 6.25 MG TAB PO SCH (08:57)
[2020-03-21] MEDS: Allopurinol 100 MG TAB PO SCH (08:57)
[2020-03-21] MEDS: Lisinopril 20 MG TAB PO SCH (08:57)
--- NOTE | 2020-03-21 10:57 | PDOC.EP ---
- Subjective Date: 03/21/20 Time: 10:52 Interval History: Follow up for AF and PVC management with sotalol loading. Feels much better, less fatigue and tiredness. No complaints. eager to go home - Review of Systems Constitutional: denies: chills, fever, weakness Respiratory: denies: cough, pleuritic pain, shortness of breath Cardiology: denies: chest pain, heart racing, light headedness, palpitations, passing out Gastrointestinal: denies: abdominal pain, constipation, vomitting Musculoskeletal: denies: unstable gait, falls, leg pain - Objective Allergies/Adverse Reactions: Allergies Allergy/AdvReac Type Severity Reaction Status Date / Time aspirin Allergy Mild cramping Verified 12/12/19 16:32 Current Medications Allopurinol (Zyloprim) 100 mg PO DAILY [facility] Last Admin: 03/21/20 08:57 Dose: 100 mg Apixaban (Eliquis) 5 mg PO BID [facility] Last Admin: 03/21/20 08:57 Dose: 5 mg Atorvastatin Calcium (Lipitor) 40 mg PO [facility] Last Admin: 03/20/20 20:38 Dose: 40 mg Carvedilol (Coreg) 12.5 mg PO BID-[facility] Last Admin: 03/21/20 08:57 Dose: 12.5 mg Cyclobenzaprine HCl (Flexeril) 10 mg PO TID PRN PRN Reason: Muscle Spasm Famotidine (Pepcid) 20 mg PO BID [facility] Last Admin: 03/21/20 08:57 Dose: 20 mg Lisinopril (Zestril) 40 mg PO DAILY [facility] Last Admin: 03/21/20 08:57 Dose: 40 mg Pantoprazole Sodium (Protonix) 40 mg PO DAILY [facility] Last Admin: 03/21/20 08:57 Dose: 40 mg Senna/Docusate Sodium (Senokot S) 2 tab PO BID PRN PRN Reason: Constipation Last Admin: 03/20/20 21:59 Dose: 2 tab Sotalol HCl (Betapace) 120 mg PO BID [facility] Last Admin: 03/21/20 08:57 Dose: 120 mg Tamsulosin HCl (Flomax) 0.4 mg PO [facility] Last Admin: 03/20/20 20:39 Dose: 0.4 mg Vital Signs & Weight: Vital Signs Temp Pulse Resp BP BP Pulse Ox 03/21/20 08:57 70 03/21/20 07:20 98.5 F 70 20 162/89 H 97 03/21/20 03:29 98.6 F 70 16 167/88 H 97 03/21/20 00:00 98.6 F 70 16 161/79 H 97 Admit Weight 169 lb Weight 169 lb I/O: I/O 03/20/20 03/21/20 03/22/20 06:59 06:59 06:59 Intake Total 266 1100 300 Balance 266 1100 300 - Quality Measures Condition: Atrial Fibrillation/Flutter (hx or current) CV meds: Eliquis: Yes - Physical Exam General: alert & oriented x3, appears well, no apparent distress, speech clear, affect appropriate HEENT: mucus membranes moist, normocephaly Neck: supple neck, midline trachea, no JVD/HJR, no masses, no bruit, no lymphadenopathy, no thromegaly Cardiology: regular rate and rhythm, no murmur, regular rate, regular rhythm, PMI nondisplaced Lungs: clear to auscultation, normal breath sounds, normal exam, no wheeze, rales, rhonchi, no wheezes, no rales, no rhonchi Neurology: cranial nerve 2-12 intact, grossly intact, motor function intact, sensory function intact, negative rhomberg, coordination normal, no lateralizing findings Abdomen: unremarkable, active bowel sounds, soft, non-tender, no masses, no pulsations/bruits, no hepatosplenomegaly, HJR negative - Chadsvasc Risk factors Congestive heart failure: 1 Hypertension: 1 Age 65-74: 1 Diabetes mellitus: 1 Risk Score: 4 - Labs Result Diagrams: 03/18/20 09:55 03/18/20 09:55 - EKG Interpretation EKG Method: Telemetry EKG shows: Sinus rhythm - Device Device: dual, defibrillator Device Result: [facility] [employer] - Assessment/Plan Assessment/Plan: 1. Atrial fibrillation - low burden but with significant RVR, resulting in ICD shock 2. Dual chamber ICD - increased LRL to 70bpm on 03/19/2020 - normal operation - no further ICD shocks 3. PVC -Moderately high burden, now well suppressed with sotalol -single morphology seen on initial ECG 4. Hypertension Sotalol is working well at suppressing his AF and PVCs. senior care he may benefit from an outpatient ablation, especially if rhythm issues recur despite ongoing antiarrhythmic therapy. Baseline QTc:420msec--> 449ms after 1st dose. --> 462ms after 5th dose Continue eliquis for anticoagulation. Sotalol rx sent in. Could reduce coreg to 6.25mg BID with concurrent sotalol but remains hypertensive. Will defer to cardiology. OK for DC by EP. 6 week follow up requested .
[2020-03-21 12:05] VITALS: BP 161/91; TEMP 98.1
--- NOTE | 2020-03-21 17:57 | EKG ---
Test Reason : TIMED MEDICATION Blood Pressure : / mmHG Vent. Rate : 053 BPM Atrial Rate : 053 BPM P-R Int : 152 ms QRS Dur : 104 ms QT Int : 448 ms P-R-T Axes : 045 -79 072 degrees QTc Int : 420 ms Sinus bradycardia Possible Left atrial enlargement Left anterior fascicular block Nonspecific T wave abnormality Abnormal ECG When compared with ECG of 18-MAR-2020 07:47, (Unconfirmed) Significant changes have occurred Confirmed by LUMA CAMPBELL (2) on 03/21/2020 5:57:30 PM Referred By: CHERIE Confirmed By:LUMA CAMPBELL
--- NOTE | 2020-03-21 18:04 | EKG ---
Test Reason : TIMED FOR 1300 Blood Pressure : / mmHG Vent. Rate : 070 BPM Atrial Rate : 070 BPM P-R Int : 296 ms QRS Dur : 116 ms QT Int : 416 ms P-R-T Axes : 038 -78 066 degrees QTc Int : 449 ms Atrial-paced rhythm with prolonged AV conduction Left anterior fascicular block Nonspecific ST and T wave abnormality Abnormal ECG When compared with ECG of 19-MAR-2020 09:26, (Unconfirmed) Electronic atrial pacemaker has replaced Sinus rhythm Confirmed by LUMA CAMPBELL (2) on 03/21/2020 6:04:18 PM Referred By: TAMIKO Confirmed By:LUMA CAMPBELL
--- NOTE | 2020-03-21 18:08 | EKG ---
Test Reason : TIMED 2299 Blood Pressure : / mmHG Vent. Rate : 078 BPM Atrial Rate : 078 BPM P-R Int : 328 ms QRS Dur : 108 ms QT Int : 398 ms P-R-T Axes : 042 -79 076 degrees QTc Int : 453 ms Atrial-paced rhythm with prolonged AV conduction Left anterior fascicular block Nonspecific ST and T wave abnormality Abnormal ECG When compared with ECG of 19-MAR-2020 12:57, (Unconfirmed) No significant change was found Confirmed by LUMA CAMPBELL (2) on 03/21/2020 6:08:26 PM Referred By: Don MORRISON Confirmed By:LUMA CAMPBELL
--- NOTE | 2020-03-21 18:11 | EKG ---
Test Reason : 2 HR POST MED Blood Pressure : / mmHG Vent. Rate : 070 BPM Atrial Rate : 070 BPM P-R Int : 228 ms QRS Dur : 110 ms QT Int : 414 ms P-R-T Axes : 035 -83 046 degrees QTc Int : 447 ms Electronic atrial pacemaker Left anterior fascicular block Nonspecific ST and T wave abnormality Abnormal ECG When compared with ECG of 19-MAR-2020 23:09, (Unconfirmed) No significant change was found Confirmed by LUMA CAMPBELL (2) on 03/21/2020 6:10:42 PM Referred By: TAMIKO PAZ Confirmed By:LUMA CAMPBELL
--- NOTE | 2020-03-21 18:12 | DIS ---
DATE OF ADMISSION: 03/18/2020 DATE OF DISCHARGE: 03/21/2020 DISCHARGE DISPOSITION: Home. PRIMARY DISCHARGE DIAGNOSES: Inappropriate defibrillator discharge, underlying atrial fibrillation with rapid ventricular response, history of dilated cardiomyopathy. SECONDARY DISCHARGE DIAGNOSES: Diabetes mellitus type 2, dyslipidemia, gout, hypertension. PROCEDURES DONE DURING HOSPITALIZATION: The patient has had CT angio of chest done on the day of admission, which showed no evidence of pulmonary embolus. No acute lung process was seen. H and H 16 and 47, platelet count 193. D-dimer 0.49. BUN 13, creatinine 0.9. BNP less than 10. DISCHARGE MEDICATIONS: 1. Coreg 12.5 mg twice daily. 2. Sotalol 120 mg p.o. twice daily. 3. Eliquis 5 mg twice daily. 4. Flomax 0.4 mg daily. 5. Lisinopril 40 mg daily. 6. Dexilant 60 mg p.o. daily. 7. Atorvastatin 40 mg p.o. daily. 8. Allopurinol 100 mg p.o. daily. 9. Zofran p.r.n. ALLERGIES: ASPIRIN. DISCHARGE PLAN: The patient is to follow up with primary care physician in 1 week. He needs to follow up with Dr. Alex Warren as advised. INPATIENT CONSULTS: Dr. Sloan for Cardiology and Dr. Alex Warren for Electrophysiology. BRIEF COURSE DURING HOSPITALIZATION: The patient initially came to the ER after his defibrillator discharged. He had initial interrogation of his AICD done, which revealed underlying atrial fibrillation with RVR. He has had consultation with Dr. Sloan for Cardiology and Dr. Alex Warren for Electrophysiology. He has had his atrial pacing adjusted on the defibrillator with pacer. The patient was also placed on sotalol along with carvedilol and was closely monitored for QT interval prolongation. He has remained stable. He has had nearly 48 hours of close monitoring on telemetry. Dr. Alex Warren has cleared him for discharge today. He is hemodynamically stable and ambulating and eating well prior to discharge. Please note I have seen and examined the patient on the day of discharge. He needs to follow up with Dr. Alex Warren as advised. Job ID: [id number]
--- NOTE | 2020-03-21 18:19 | EKG ---
Test Reason : MICLECarolann Blood Pressure : / mmHG Vent. Rate : 070 BPM Atrial Rate : 070 BPM P-R Int : 328 ms QRS Dur : 116 ms QT Int : 424 ms P-R-T Axes : 050 -79 065 degrees QTc Int : 457 ms Atrial-paced rhythm with prolonged AV conduction Left anterior fascicular block Nonspecific ST and T wave abnormality Abnormal ECG When compared with ECG of 20-MAR-2020 10:53, (Unconfirmed) No significant change was found Confirmed by LUMA CAMPBELL (2) on 03/21/2020 6:18:24 PM Referred By: Confirmed By:LUMA CAMPBELL
--- NOTE | 2020-03-21 18:27 | EKG ---
Test Reason : TIMED Blood Pressure : / mmHG Vent. Rate : 070 BPM Atrial Rate : 070 BPM P-R Int : 242 ms QRS Dur : 110 ms QT Int : 428 ms P-R-T Axes : 031 -75 049 degrees QTc Int : 462 ms Electronic atrial pacemaker Left anterior fascicular block Nonspecific ST and T wave abnormality Prolonged QT Abnormal ECG When compared with ECG of 20-MAR-2020 23:09, (Unconfirmed) No significant change was found Confirmed by LUMA CAMPBELL (2) on 03/21/2020 6:26:49 PM Referred By: TAMIKO Confirmed By:LUMA CAMPBELL
== END 2020-03-21 12:27 | disposition home or self-care (01) ==
LOC: ERS 07:32 → 2SE 14:17
PROVIDERS: ADMIT Internal Medicine; ATTEND Internal Medicine
DX: T82.199A Other mechanical complication of unspecified cardiac device, initial encounter (principal); I48.0 Paroxysmal atrial fibrillation; I47.1 Supraventricular tachycardia; I42.8 Other cardiomyopathies; I25.10 Atherosclerotic heart disease of native coronary artery without angina pectoris; I11.0 Hypertensive heart disease with heart failure; I50.20 Unspecified systolic (congestive) heart failure; E11.9 Type 2 diabetes mellitus without complications; E78.5 Hyperlipidemia, unspecified; M10.9 Gout, unspecified; Z79.01 Long term (current) use of anticoagulants; Z79.899 Other long term (current) drug therapy; Z88.6 Allergy status to analgesic agent; Z95.810 Presence of automatic (implantable) cardiac defibrillator
CPT/HCPCS: 36415; 71045; 71275; 80053; 82550; 83690; 83880; 84484; 85025; 85379; 93005; 93010; 93306; G0378; Q9967

== ENCOUNTER 2024-06-25 03:14 | Inpatient (IN) | payer OTHER, MEDICAID ==
[2024-06-25 04:27] VITALS: BMI 34.5
[2024-06-25] MEDS ORDERED: Ondansetron PF 4 MG/2 ML Vial IVP PRN (04:56)
[2024-06-25] MEDS ORDERED: dilTIAZem 125 MG in Sodium Chloride 0.9% 100 ML IVPB SCH (05:00)
[2024-06-25] MEDS ORDERED: Diltiazem HCl/D5W 125 MG in Premix 1 BAG IVPB SCH (05:15)
[2024-06-25] MEDS: Doxycycline 100 MG in Sodium Chloride 0.9% 100 ML IVPB SCH (06:03)
[2024-06-25] MEDS: methylPREDNISolone Sod Succ 40 MG VIAL IVP SCH (06:04)
[2024-06-25 06:26] LABS: Hematocrit 36.2 % (42.0-52.0); Hemoglobin 12.7 g/dL (14.0-18.0); Mean Corpuscular HGB CONC 35.1 g/dL (32.0-36.0); Mean Corpuscular Hemoglobin 32.3 pg (27.0-31.0); Mean Corpuscular Volume 92.1 fL (78.0-98.0); Mean Platelet Volume 11.4 fL (7.4-10.4); Platelet Count 132 10x3/uL (130-400); RBC Distribution Width 13.8 % (11.5-14.5); Red Blood Cell (RBC) Count 3.93 mill/uL (4.70-6.10)
[2024-06-25 06:40] LABS: Troponin I 0.064 ng/mL (< 0.028)
[2024-06-25 06:58] LABS: Anisocytosis SLIGHT = 6-15 cells HPF (0-5); Band 5 % (5-11); Large Platelets 5.1 % (0-5); Lymphocytes 22 % (21-51); Macrocytosis SLIGHT = 6-15 cells HPF (0-5); Monocytes 10 % (0-10); Neutrophil 61 % (42-75); Platelet Adequacy Comment Platelets Normal; Polychromasia SLIGHT = 2-3 cells HPF (0-2); Reactive Lymphocytes 2 % (0-10); Smudge Cells 13.1 %
[2024-06-25 07:05] LABS: Carbon Dioxide 19 mmol/L (23-31); Chloride 108 mmol/L (98-107); Sodium 136 mmol/L (136-145)
[2024-06-25 07:06] LABS: Anion Gap 13 mmol/L (10-20); BUN (Urea Nitrogen) 23 mg/dL (8.4-25.7); Calc. Creatinine Clearance 99 mL/min (70-130); Estimated GFR 88; Glucose 94 mg/dL (80-115); Protein, Total 6.2 g/dL (5.8-8.1)
[2024-06-25 07:07] LABS: ALT (SGPT) 39 U/L (8-55); AST (SGOT) 41 U/L (5-34); Alkaline Phosphatase 52 U/L (40-110); Globulin 3.2 g/dL (2.4-3.5)
[2024-06-25 07:14] LABS: Bilirubin, Total 0.7 mg/dL (0.2-1.2); Calcium 8.5 mg/dL (7.6-10.4)
[2024-06-25 07:16] LABS: Magnesium 2.1 mg/dL (1.6-2.6)
[2024-06-25] MEDS ORDERED: Albuterol 1.25 MG (3 mL) NEB NEB PRN (07:52)
[2024-06-25] MEDS ORDERED: Levalbuterol HCl 0.63 MG/3 ML NEB NEB PRN (08:01)
[2024-06-25] MEDS: Acetaminophen 325 MG TAB PO PRN (08:27)
[2024-06-25] MEDS: Oseltamivir 75 MG CAP PO SCH (08:28)
[2024-06-25] MEDS: guaiFENesin/DM ER PO SCH (08:28)
[2024-06-25] MEDS: Apixaban 5 MG TAB PO SCH (08:28)
[2024-06-25] MEDS: Sotalol HCl 80 MG TAB PO SCH ×2 (08:28→21:41)
[2024-06-25] MEDS ORDERED: FLU (Fluad Triv) TS24-25 (65UP)/MF59C/PF 45 MCG/0.5 ML Syringe IM ONE (09:00)
[2024-06-25 09:20] LABS: Legionella Urinary Ag Negative (Negative); Strep pneumo Urine Ag NEGATIVE (NEGATIVE)
[2024-06-25] MEDS ORDERED: Pantoprazole DR 40 MG TAB PO PRN (16:07)
[2024-06-25] MEDS ORDERED: Ondansetron ODT 4 MG TAB PO PRN (16:07)
[2024-06-25] MEDS: Sacubitril 49 MG/Valsartan 51 MG TABLET PO SCH (21:38)
[2024-06-25] MEDS: Benzonatate 100 MG CAP PO PRN (22:16)
[2024-06-26 05:56] LABS: Hematocrit 41.1 % (42.0-52.0); Hemoglobin 14.1 g/dL (14.0-18.0); Mean Corpuscular HGB CONC 34.3 g/dL (32.0-36.0); Mean Corpuscular Hemoglobin 31.3 pg (27.0-31.0); Mean Corpuscular Volume 91.1 fL (78.0-98.0); Mean Platelet Volume 11.7 fL (7.4-10.4); Platelet Count 131 10x3/uL (130-400); RBC Distribution Width 13.7 % (11.5-14.5); Red Blood Cell (RBC) Count 4.51 mill/uL (4.70-6.10)
[2024-06-26 06:32] LABS: Band 6 % (5-11); Lymphocytes 6 % (21-51); Monocytes 2 % (0-10); Neutrophil 85 % (42-75); Platelet Adequacy Comment Platelets Normal; RBC Morphology Within Normal Limits
[2024-06-26 06:54] LABS: Anion Gap 14 mmol/L (10-20); BUN (Urea Nitrogen) 26 mg/dL (8.4-25.7); Calc. Creatinine Clearance 96 mL/min (70-130); Calcium 8.9 mg/dL (7.8-10.44); Carbon Dioxide 14 mmol/L (23-31); Chloride 110 mmol/L (98-107); Estimated GFR 86; Glucose 183 mg/dL (80-115); Potassium 4.1 mmol/L (3.5-5.1); Sodium 134 mmol/L (136-145)
[2024-06-26] MEDS: Atorvastatin Calcium 40 MG TAB PO SCH (09:23)
[2024-06-26] MEDS: Allopurinol 100 MG TAB PO SCH (09:24)
[2024-06-26] MEDS: Tamsulosin HCl 0.4 MG CAP PO SCH (09:24)
[2024-06-27 04:33] LABS: Anion Gap 13 mmol/L (10-20); BUN (Urea Nitrogen) 33 mg/dL (8.4-25.7); Calc. Creatinine Clearance 94 mL/min (70-130); Calcium 8.6 mg/dL (7.8-10.44); Carbon Dioxide 17 mmol/L (23-31); Chloride 107 mmol/L (98-107); Estimated GFR 84; Glucose 181 mg/dL (80-115); Sodium 133 mmol/L (136-145)
[2024-06-27 04:47] LABS: #Basophils Less than 0.03 10x3/uL (0.0-0.2); #Eosinphils Less than 0.03 10x3/uL (0.0-0.7); %Basophils 0.1 % (0.0-1.0); %Lymphocytes 9.6 % (21.0-51.0); %Monocytes 4.4 % (0.0-10.0); %Neutrophils 85.4 % (42.0-75.0); Hematocrit 41.6 % (42.0-52.0); Hemoglobin 14.2 g/dL (14.0-18.0); Mean Corpuscular HGB CONC 34.1 g/dL (32.0-36.0); Mean Corpuscular Hemoglobin 31.7 pg (27.0-31.0); Mean Corpuscular Volume 92.9 fL (78.0-98.0); Mean Platelet Volume 11.9 fL (7.4-10.4); Platelet Count 175 10x3/uL (130-400); RBC Distribution Width 13.8 % (11.5-14.5); Red Blood Cell (RBC) Count 4.48 mill/uL (4.70-6.10)
[2024-06-27 05:56] LABS: Anisocytosis SLIGHT = 6-15 cells HPF (0-5); Band 3 % (5-11); Lymphocytes 1 % (21-51); Macrocytosis SLIGHT = 6-15 cells HPF (0-5); Monocytes 5 % (0-10); Neutrophil 91 % (42-75); Platelet Adequacy Comment Platelets Decreased; Polychromasia SLIGHT = 2-3 cells HPF (0-2)
[2024-06-27] MEDS: Furosemide 80 MG TAB PO SCH (09:16)
[2024-06-27] MEDS ORDERED: Pantoprazole DR 40 MG TAB PO PRN (14:57)
[2024-06-27] MEDS: predniSONE 20 MG TAB PO SCH (16:24)
[2024-06-27] MEDS: Doxycycline 100 MG CAP PO SCH (20:13)
[2024-06-28 04:48] LABS: #Basophils Less than 0.03 10x3/uL (0.0-0.2); #Eosinphils Less than 0.03 10x3/uL (0.0-0.7); %Basophils 0.1 % (0.0-1.0); %Lymphocytes 7.7 % (21.0-51.0); %Monocytes 4.6 % (0.0-10.0); Hematocrit 41.4 % (42.0-52.0); Hemoglobin 14.2 g/dL (14.0-18.0); Mean Corpuscular HGB CONC 34.3 g/dL (32.0-36.0); Mean Corpuscular Hemoglobin 31.6 pg (27.0-31.0); Mean Corpuscular Volume 92.2 fL (78.0-98.0); Platelet Count 224 10x3/uL (130-400); RBC Distribution Width 13.8 % (11.5-14.5); Red Blood Cell (RBC) Count 4.49 mill/uL (4.70-6.10)
[2024-06-28 06:00] LABS: Anion Gap 13 mmol/L (10-20); BUN (Urea Nitrogen) 39 mg/dL (8.4-25.7); Calc. Creatinine Clearance 80 mL/min (70-130); Calcium 8.4 mg/dL (7.8-10.44); Carbon Dioxide 18 mmol/L (23-31); Chloride 109 mmol/L (98-107); Estimated GFR 68; Glucose 166 mg/dL (80-115); Sodium 136 mmol/L (136-145)
[2024-06-28 07:30] VITALS: BP 121/81; TEMP 97.7
[2024-06-28] MEDS: predniSONE 20 MG TAB PO SCH (08:54)
== END 2024-06-28 10:56 | disposition home or self-care (01) | DRG 153 ==
LOC: 2SW 03:14
PROVIDERS: ADMIT Internal Medicine; ATTEND Family Medicine
DX: J11.1 Influenza due to unidentified influenza virus with other respiratory manifestations (principal); I48.20 Chronic atrial fibrillation, unspecified; I42.0 Dilated cardiomyopathy; I50.42 Chronic combined systolic (congestive) and diastolic (congestive) heart failure; I25.10 Atherosclerotic heart disease of native coronary artery without angina pectoris; D72.819 Decreased white blood cell count, unspecified; I11.0 Hypertensive heart disease with heart failure; E78.5 Hyperlipidemia, unspecified; E11.9 Type 2 diabetes mellitus without complications; Z88.8 Allergy status to other drugs, medicaments and biological substances; Z95.810 Presence of automatic (implantable) cardiac defibrillator; Z90.49 Acquired absence of other specified parts of digestive tract; Z87.11 Personal history of peptic ulcer disease
CPT/HCPCS: 36415; 80048; 80053; 83735; 83880; 84145; 84484; 85025; 87428; 87449; 87899; J2919; J7512

== ENCOUNTER 2024-09-04 04:53 | Observation (INO) | payer OTHER, MEDICAID ==
[2024-09-04] MEDS ORDERED: Dextrose 50% Abboject 50 ML SYRINGE SLOW IVP PRN (10:35)
[2024-09-04] MEDS ORDERED: Acetaminophen 325 MG TAB PO PRN (10:35)
[2024-09-04] MEDS ORDERED: Glucagon 1 MG/ML KIT IM PRN (10:35)
[2024-09-04] MEDS ORDERED: Dextrose 5% in Water 1,000 ML IV PRN (10:35)
[2024-09-04] MEDS ORDERED: Insulin Lispro 100 UNIT/ML 10 ML VIAL SC PRN ×2 (10:37)
[2024-09-04] MEDS ORDERED: Electrolyte Replacement Protocol 1 EACH FS SCH (10:45)
[2024-09-04 11:02] LABS: #Basophils Less than 0.03 10x3/uL (0.0-0.2); %Basophils 0.2 % (0.0-1.0); %Eosinophils 0.5 % (0.0-10.0); %Lymphocytes 15.9 % (21.0-51.0); %Monocytes 9.3 % (0.0-10.0); %Neutrophils 73.8 % (42.0-75.0); Hematocrit 43.1 % (42.0-52.0); Mean Corpuscular HGB CONC 34.8 g/dL (32.0-36.0); Mean Corpuscular Hemoglobin 31.8 pg (27.0-31.0); Mean Corpuscular Volume 91.3 fL (78.0-98.0); Mean Platelet Volume 10.1 fL (7.4-10.4); Platelet Count 217 10x3/uL (130-400); RBC Distribution Width 15.7 % (11.5-14.5); Red Blood Cell (RBC) Count 4.72 mill/uL (4.70-6.10)
[2024-09-04 11:18] LABS: Phosphorus 3.2 mg/dL (2.3-4.7)
[2024-09-04 11:20] LABS: Anion Gap 18 mmol/L (10-20); BUN (Urea Nitrogen) 17 mg/dL (8.4-25.7); Calc. Creatinine Clearance 98 mL/min (70-130); Carbon Dioxide 14 mmol/L (23-31); Chloride 108 mmol/L (98-107); Estimated GFR 92; Glucose 65 mg/dL (80-115); Magnesium 2.4 mg/dL (1.6-2.6); Potassium 4.3 mmol/L (3.5-5.1); Sodium 136 mmol/L (136-145)
[2024-09-04] MEDS: traMADol HCl 50 MG TAB PO PRN (12:59)
[2024-09-04] MEDS: Pantoprazole DR 40 MG TAB PO SCH (12:59)
[2024-09-04] MEDS: Diclofenac 1% 50 GM TOPICAL GEL TP SCH (13:05)
[2024-09-04] MEDS: Thiamine HCl 200 MG/2 ML VIAL SLOW IVP SCH (14:13)
[2024-09-04 18:53] LABS: Troponin I Less than 0.010 ng/mL (< 0.028)
[2024-09-04] MEDS: Metoprolol Tartrate 25 MG TAB PO SCH (20:46)
[2024-09-04] MEDS: LIDOCAINE TOP SCH (20:47)
[2024-09-05 06:33] LABS: #Basophils Less than 0.03 10x3/uL (0.0-0.2); %Basophils 0.4 % (0.0-1.0); %Eosinophils 0.9 % (0.0-10.0); %Monocytes 9.5 % (0.0-10.0); Hematocrit 45.9 % (42.0-52.0); Hemoglobin 15.3 g/dL (14.0-18.0); Mean Corpuscular HGB CONC 33.3 g/dL (32.0-36.0); Mean Corpuscular Hemoglobin 31.5 pg (27.0-31.0); Mean Corpuscular Volume 94.6 fL (78.0-98.0); Mean Platelet Volume 11.3 fL (7.4-10.4); Platelet Count 193 10x3/uL (130-400); RBC Distribution Width 16.2 % (11.5-14.5); Red Blood Cell (RBC) Count 4.85 mill/uL (4.70-6.10)
[2024-09-05 07:51] LABS: Anion Gap 17 mmol/L (10-20); BUN (Urea Nitrogen) 25 mg/dL (8.4-25.7); Calc. Creatinine Clearance 87 mL/min (70-130); Carbon Dioxide 18 mmol/L (23-31); Chloride 105 mmol/L (98-107); Estimated GFR 80; Glucose 102 mg/dL (80-115); Potassium 4.5 mmol/L (3.5-5.1); Sodium 135 mmol/L (136-145)
[2024-09-05] MEDS: Multivit, Therapeutic 1 TAB PO SCH (09:12)
[2024-09-05] MEDS: Folic Acid 1 MG TAB PO SCH (09:12)
[2024-09-05] MEDS: Pantoprazole DR 40 MG TAB PO SCH (09:12)
[2024-09-05] MEDS: Lidocaine 4% Patch TD SCH (09:13)
[2024-09-05] MEDS ORDERED: Allopurinol 100 MG TAB PO PRN (10:48)
[2024-09-05 15:15] VITALS: BP 174/88; TEMP 97.9
[2024-09-05] MEDS ORDERED: Atorvastatin Calcium 40 MG TAB PO SCH (21:00)
[2024-09-05] MEDS ORDERED: Apixaban 5 MG TAB PO SCH (21:00)
[2024-09-05] MEDS ORDERED: Sacubitril 49 MG/Valsartan 51 MG TABLET PO SCH (21:00)
[2024-09-06] MEDS ORDERED: Tamsulosin HCl 0.4 MG CAP PO SCH (09:00)
[2024-09-06] MEDS ORDERED: Furosemide 80 MG TAB PO SCH (09:00)
[2024-09-07] MEDS ORDERED: Thiamine 100 MG TAB PO SCH (10:45)
== END 2024-09-05 17:03 | disposition home or self-care (01) ==
LOC: OBS 09:13 → INTOOBSV 09:13
PROVIDERS: ADMIT Internal Medicine; ATTEND Internal Medicine
PROC: B24BZZZ Ultrasonography of Heart with Aorta (ICD-10-PCS; principal; 2024-09-05)
DX: R07.89 Other chest pain (principal); I48.91 Unspecified atrial fibrillation; I11.0 Hypertensive heart disease with heart failure; I50.20 Unspecified systolic (congestive) heart failure; E78.5 Hyperlipidemia, unspecified; F12.90 Cannabis use, unspecified, uncomplicated; F10.90 Alcohol use, unspecified, uncomplicated; Y90.9 Presence of alcohol in blood, level not specified; Z79.01 Long term (current) use of anticoagulants; Z79.899 Other long term (current) drug therapy
CPT/HCPCS: 80048 ×2; 82962 ×2; 83735; 84100; 84484; 85025 ×2; 93005; 93306; 96374; 96376; 97116; G0378 ×2; J3411 ×2; 36415; 36416; 93010